=== PATIENT | female | born 1955 | race Caucasian/White ===

== ENCOUNTER 2018-01-03 17:57 | Emergency (ER) | payer BC, OTHER ==
[2018-01-03] MEDS: HYDROCODONE/APAP (10/325) TAB PO (19:15)
[2018-01-03] MEDS: KETOROLAC 60 MG INJ IM (19:15)
== END 2018-01-03 21:20 | disposition home or self-care (01) ==
LOC: FTE 17:57
DX: M79.605 Pain in left leg (principal); I10 Essential (primary) hypertension; E11.9 Type 2 diabetes mellitus without complications; Z87.891 Personal history of nicotine dependence
CPT/HCPCS: 29515; 73510; 73562; 73610; 93971; 99284-25

== ENCOUNTER 2018-02-23 15:50 | Inpatient (IN) | payer BC ==
[2018-02-23] MEDS: HYDROCODONE/APAP (10/325) TAB PO (16:10)
[2018-02-23] MEDS: ONDANSETRON (ODT) 4 MG TAB ODT (16:10)
[2018-02-23] MEDS: morphine 2 MG INJ IM (17:41)
[2018-02-23 18:57] LABS: ADD MAN DIFF? NO
[2018-02-23 19:00] LABS: BASOPHILS % 0.4 % (0.0-2.0); EOSINOPHILS # 0.3 10^3/ul (0.0-0.5); EOSINOPHILS % 3.4 % (0.0-7.0); HEMATOCRIT 42.3 % (37.0-47.0); HEMOGLOBIN 13.3 g/dl (12.0-16.0); LYMPHOCYTES % 12.1 % (15.0-51.0); MEAN CORPUSCULAR HGB CONC 31.4 g/dl (32.0-37.0); MEAN CORPUSCULAR VOLUME 89.1 fl (82.0-101.0); MEAN PLATELET VOLUME 10.3 fl (7.4-10.4); MONOCYTE # 0.6 10^3/ul (0.3-0.9); MONOCYTES % 7.4 % (0.0-11.0); NEUTROPHIL # 6.3 10^3/ul (1.6-7.5); NEUTROPHILS % 75.9 % (39.0-77.0); PLATELET COUNT 254 10^3/UL (140-415); RED BLOOD COUNT 4.75 10^6/ul (4.20-5.40); RED CELL DISTRIBUTION WIDTH 14.5 % (11.5-14.5)
[2018-02-23 19:00] LABS: WHITE BLOOD COUNT 8.3 10^3/ul (4.8-10.8)
[2018-02-23] MEDS: HYDROmorphONE 1 MG/ML SYG IV (19:05)
[2018-02-23] MEDS: ONDANSETRON 4 MG INJ IV (19:05)
[2018-02-23 19:17] LABS: ANION GAP 5 (5-13); BLOOD UREA NITROGEN 22 mg/dl (7-20); CALCIUM 9.3 mg/dl (8.4-10.2); CARBON DIOXIDE 27 mmol/L (21-31); CHLORIDE 108 mmol/L (97-110); CREATININE 0.97 mg/dl (0.44-1.00); GLUCOSE 116 mg/dl (70-220); SODIUM 140 mmol/L (135-144)
[2018-02-23] MEDS ORDERED: ONDANSETRON 4 MG INJ IV (19:30)
[2018-02-23] MEDS ORDERED: ACETAMINOPHEN 325 MG TAB PO ×2 (19:30→21:00)
[2018-02-23] MEDS ORDERED: BISACODYL (EC) 5 MG TAB PO (21:00)
[2018-02-23] MEDS: INSULIN ASPART [NOVOLOG] 3 ML PEN SC (21:00)
[2018-02-23] MEDS ORDERED: NACL 0.9% 3 ML SYG IV (21:00)
[2018-02-23] MEDS ORDERED: GLUCAGON 1 MG INJ IM (21:30)
[2018-02-23] MEDS ORDERED: GLUCOSE GEL 15 GRAM TUBE BUCCAL (21:30)
[2018-02-23] MEDS ORDERED: GLUCOSE GEL 15 GRAM TUBE PO ×2 (21:30)
[2018-02-23] MEDS ORDERED: DEXTROSE 50% 50 ML SYRINGE IV ×2 (21:30)
[2018-02-23] MEDS: HYDROCODONE/APAP (5/325) TAB PO (21:34)
[2018-02-23] MEDS: ENOXAPARIN 40 MG/0.4 ML SYG SC (22:13)
[2018-02-23] MEDS: GABAPENTIN 300 MG CAP PO (23:53)
[2018-02-23] MEDS: traMADol 50 MG TAB PO (23:54)
[2018-02-24] MEDS: ACCU-CHEK XX (01:30)
[2018-02-24] MEDS ORDERED: PENDING SANTYL ORDER FOR WOUND CARE XX (03:00)
[2018-02-24] MEDS: PANTOPRAZOLE SODIUM 20 MG TABEC PO (05:38)
[2018-02-24] MEDS: CYCLOBENZAPRINE 10 MG TAB PO (05:38)
[2018-02-24] MEDS: HYDROCODONE/APAP (5/325) TAB PO ×2 (05:40→11:46)
[2018-02-24] MEDS: LEVOTHYROXINE 100 MCG TAB PO (06:09)
[2018-02-24 06:45] LABS: ADD MAN DIFF? NO
[2018-02-24 06:54] LABS: BASOPHILS % 0.6 % (0.0-2.0); EOSINOPHILS # 0.3 10^3/ul (0.0-0.5); EOSINOPHILS % 4.3 % (0.0-7.0); HEMATOCRIT 39.8 % (37.0-47.0); HEMOGLOBIN 12.6 g/dl (12.0-16.0); LYMPHOCYTES # 1.1 10^3/ul (0.8-2.9); LYMPHOCYTES % 15.9 % (15.0-51.0); MEAN CORPUSCULAR HEMOGLOBIN 28.6 pg (29.0-33.0); MEAN CORPUSCULAR HGB CONC 31.7 g/dl (32.0-37.0); MEAN CORPUSCULAR VOLUME 90.2 fl (82.0-101.0); MEAN PLATELET VOLUME 10.8 fl (7.4-10.4); MONOCYTE # 0.6 10^3/ul (0.3-0.9); MONOCYTES % 8.5 % (0.0-11.0); NEUTROPHIL # 4.8 10^3/ul (1.6-7.5); NEUTROPHILS % 69.3 % (39.0-77.0); PLATELET COUNT 223 10^3/UL (140-415); RED BLOOD COUNT 4.41 10^6/ul (4.20-5.40); RED CELL DISTRIBUTION WIDTH 14.6 % (11.5-14.5)
[2018-02-24 07:07] LABS: HEMOGLOBIN A1C 5.9 % (0-5.9)
[2018-02-24 07:28] LABS: ALANINE AMINOTRANSFERASE 35 IU/L (13-69); ALBUMIN 2.9 g/dl (3.3-4.9); ALBUMIN/GLOBULIN RATIO 0.96; ALKALINE PHOSPHATASE 79 IU/L (42-121); ANION GAP 6 (5-13); ASPARTATE AMINO TRANSFERASE 28 IU/L (15-46); BILIRUBIN,INDIRECT 0.5 mg/dl (0-1.1); BILIRUBIN,TOTAL 0.5 mg/dl (0.2-1.3); BLOOD UREA NITROGEN 20 mg/dl (7-20); CALCIUM 9.2 mg/dl (8.4-10.2); CARBON DIOXIDE 27 mmol/L (21-31); CHLORIDE 107 mmol/L (97-110); CHOL/HDL RATIO 4.7 RATIO; CHOLESTEROL 161 mg/dl (100-200); CREATININE 1.05 mg/dl (0.44-1.00); GLUCOSE 109 mg/dl (70-220); HDL CHOLESTEROL 34 mg/dl (35-98); LDL CHOLESTEROL,CALCULATED 93 mg/dl; MAGNESIUM 1.8 mg/dl (1.7-2.5); POTASSIUM 4.5 mmol/L (3.5-5.1); SODIUM 140 mmol/L (135-144); TOTAL PROTEIN 5.9 g/dl (6.1-8.1); TRIGLYCERIDES 171 mg/dl (0-149)
[2018-02-24] MEDS: INSULIN ASPART [NOVOLOG] 3 ML PEN SC ×4 (07:52→20:39)
[2018-02-24] MEDS: INDOMETHACIN 50 MG PO ×3 (08:37→20:35)
[2018-02-24] MEDS: ATENOLOL 50 MG TAB PO (08:37)
[2018-02-24] MEDS: LOSARTAN 25 MG TAB PO (08:38)
[2018-02-24] MEDS: GABAPENTIN 300 MG CAP PO ×2 (08:40→20:35)
[2018-02-24] MEDS: traMADol 50 MG TAB PO ×2 (08:41→20:34)
[2018-02-24] MEDS: ENOXAPARIN 40 MG/0.4 ML SYG SC (08:42)
[2018-02-24] MEDS ORDERED: NAPROXEN SODIUM 500 MG XX (09:00)
[2018-02-24] MEDS: SOLIFENACIN 5 MG TAB PO (10:55)
[2018-02-24] MEDS: NAPROXEN 500 MG TAB PO ×2 (10:55→20:35)
[2018-02-25] MEDS: HYDROCODONE/APAP (5/325) TAB PO ×4 (00:07→21:41)
[2018-02-25] MEDS: ACCU-CHEK XX ×2 (02:00→23:53)
[2018-02-25 06:11] LABS: ADD MAN DIFF? NO
[2018-02-25 06:12] LABS: BASOPHILS % 0.3 % (0.0-2.0); EOSINOPHILS # 0.2 10^3/ul (0.0-0.5); EOSINOPHILS % 3.5 % (0.0-7.0); HEMATOCRIT 39.8 % (37.0-47.0); HEMOGLOBIN 12.4 g/dl (12.0-16.0); LYMPHOCYTES # 1.1 10^3/ul (0.8-2.9); LYMPHOCYTES % 16.8 % (15.0-51.0); MEAN CORPUSCULAR HEMOGLOBIN 28.2 pg (29.0-33.0); MEAN CORPUSCULAR HGB CONC 31.2 g/dl (32.0-37.0); MEAN CORPUSCULAR VOLUME 90.5 fl (82.0-101.0); MEAN PLATELET VOLUME 10.6 fl (7.4-10.4); MONOCYTE # 0.6 10^3/ul (0.3-0.9); MONOCYTES % 8.8 % (0.0-11.0); NEUTROPHIL # 4.6 10^3/ul (1.6-7.5); NEUTROPHILS % 69.2 % (39.0-77.0); PLATELET COUNT 216 10^3/UL (140-415); RED CELL DISTRIBUTION WIDTH 14.3 % (11.5-14.5)
[2018-02-25 06:12] LABS: WHITE BLOOD COUNT 6.6 10^3/ul (4.8-10.8)
[2018-02-25] MEDS: LEVOTHYROXINE 100 MCG TAB PO (06:21)
[2018-02-25] MEDS: PANTOPRAZOLE SODIUM 20 MG TABEC PO (06:22)
[2018-02-25 06:30] LABS: MAGNESIUM 1.7 mg/dl (1.7-2.5)
[2018-02-25 06:33] LABS: ANION GAP 6 (5-13); BLOOD UREA NITROGEN 24 mg/dl (7-20); CALCIUM 8.9 mg/dl (8.4-10.2); CARBON DIOXIDE 28 mmol/L (21-31); CHLORIDE 107 mmol/L (97-110); CREATININE 1.15 mg/dl (0.44-1.00); GLUCOSE 123 mg/dl (70-220); POTASSIUM 4.5 mmol/L (3.5-5.1); SODIUM 141 mmol/L (135-144)
[2018-02-25] MEDS: INSULIN ASPART [NOVOLOG] 3 ML PEN SC ×4 (08:00→21:00)
[2018-02-25] MEDS: NAPROXEN 500 MG TAB PO ×2 (08:54→21:41)
[2018-02-25] MEDS: GABAPENTIN 300 MG CAP PO ×2 (08:54→21:41)
[2018-02-25] MEDS: traMADol 50 MG TAB PO ×2 (08:54→23:08)
[2018-02-25] MEDS: LOSARTAN 25 MG TAB PO (08:54)
[2018-02-25] MEDS: INDOMETHACIN 50 MG PO ×3 (08:54→21:42)
[2018-02-25] MEDS: SOLIFENACIN 5 MG TAB PO (08:54)
[2018-02-25] MEDS: ATENOLOL 50 MG TAB PO (08:54)
[2018-02-25] MEDS: ENOXAPARIN 40 MG/0.4 ML SYG SC (08:56)
[2018-02-25] MEDS: CEPASTAT LOZENGE MT ×2 (12:14→21:43)
[2018-02-26] MEDS: PANTOPRAZOLE SODIUM 20 MG TABEC PO (05:18)
[2018-02-26] MEDS: HYDROCODONE/APAP (5/325) TAB PO ×3 (05:18→22:19)
[2018-02-26] MEDS: LEVOTHYROXINE 100 MCG TAB PO (06:29)
[2018-02-26] MEDS: INSULIN ASPART [NOVOLOG] 3 ML PEN SC ×4 (07:50→20:57)
[2018-02-26] MEDS: LOSARTAN 25 MG TAB PO (09:00)
[2018-02-26] MEDS: GABAPENTIN 300 MG CAP PO ×2 (09:01→20:53)
[2018-02-26] MEDS: SOLIFENACIN 5 MG TAB PO (09:01)
[2018-02-26] MEDS: NAPROXEN 500 MG TAB PO ×2 (09:01→20:53)
[2018-02-26] MEDS: INDOMETHACIN 50 MG PO ×3 (09:01→20:57)
[2018-02-26] MEDS: ATENOLOL 50 MG TAB PO (09:01)
[2018-02-26] MEDS: ENOXAPARIN 40 MG/0.4 ML SYG SC (09:05)
[2018-02-26] MEDS: traMADol 50 MG TAB PO ×2 (09:17→20:53)
[2018-02-26 11:09] LABS: FREE T4 (FREE THYROXINE) 1.57 ng/dl (0.78-2.44)
[2018-02-27] MEDS: ACCU-CHEK XX (02:00)
[2018-02-27] MEDS: HYDROCODONE/APAP (5/325) TAB PO ×3 (05:00→18:04)
[2018-02-27] MEDS: PANTOPRAZOLE SODIUM 20 MG TABEC PO (05:00)
[2018-02-27] MEDS: LEVOTHYROXINE 100 MCG TAB PO (05:52)
[2018-02-27] MEDS: INSULIN ASPART [NOVOLOG] 3 ML PEN SC ×4 (07:50→21:00)
[2018-02-27] MEDS: ENOXAPARIN 40 MG/0.4 ML SYG SC (08:38)
[2018-02-27] MEDS: NAPROXEN 500 MG TAB PO ×2 (08:38→22:17)
[2018-02-27] MEDS: INDOMETHACIN 50 MG PO ×3 (08:38→22:17)
[2018-02-27] MEDS: SOLIFENACIN 5 MG TAB PO (08:38)
[2018-02-27] MEDS: GABAPENTIN 300 MG CAP PO ×2 (08:38→22:17)
[2018-02-27] MEDS: traMADol 50 MG TAB PO ×2 (08:39→22:18)
[2018-02-27] MEDS: LOSARTAN 25 MG TAB PO (08:39)
[2018-02-27] MEDS: ATENOLOL 50 MG TAB PO (08:40)
[2018-02-27] MEDS: BETAMET NA PHOS/AC(6 MG/ML) 5ML INJ INJ ×2 (18:00)
[2018-02-27] MEDS: BUPIVACAINE 0.5%/EPI (SDV) 30 ML INJ INJ ×2 (18:00)
[2018-02-27] MEDS: SENNA/DOCUSATE NA (8.6MG/50MG) TAB PO (22:17)
[2018-02-28] MEDS: HYDROCODONE/APAP (5/325) TAB PO ×3 (01:21→16:58)
[2018-02-28] MEDS: ACCU-CHEK XX (02:00)
[2018-02-28 05:00] LABS: ADD MAN DIFF? NO
[2018-02-28 05:15] LABS: BASOPHILS % 0.3 % (0.0-2.0); EOSINOPHILS % 0.3 % (0.0-7.0); HEMATOCRIT 42.9 % (37.0-47.0); HEMOGLOBIN 13.5 g/dl (12.0-16.0); LYMPHOCYTES # 0.7 10^3/ul (0.8-2.9); LYMPHOCYTES % 7.4 % (15.0-51.0); MEAN CORPUSCULAR HEMOGLOBIN 27.7 pg (29.0-33.0); MEAN CORPUSCULAR HGB CONC 31.5 g/dl (32.0-37.0); MEAN CORPUSCULAR VOLUME 88.1 fl (82.0-101.0); MEAN PLATELET VOLUME 10.8 fl (7.4-10.4); MONOCYTE # 0.1 10^3/ul (0.3-0.9); MONOCYTES % 1.1 % (0.0-11.0); NEUTROPHIL # 7.8 10^3/ul (1.6-7.5); NEUTROPHILS % 89.4 % (39.0-77.0); PLATELET COUNT 265 10^3/UL (140-415); RED BLOOD COUNT 4.87 10^6/ul (4.20-5.40); RED CELL DISTRIBUTION WIDTH 13.9 % (11.5-14.5)
[2018-02-28 05:15] LABS: WHITE BLOOD COUNT 8.8 10^3/ul (4.8-10.8)
[2018-02-28 05:33] LABS: ANION GAP 9 (5-13); BLOOD UREA NITROGEN 31 mg/dl (7-20); CALCIUM 9.3 mg/dl (8.4-10.2); CARBON DIOXIDE 23 mmol/L (21-31); CHLORIDE 106 mmol/L (97-110); CREATININE 1.14 mg/dl (0.44-1.00); GLUCOSE 192 mg/dl (70-220); MAGNESIUM 1.9 mg/dl (1.7-2.5); PHOSPHORUS 3.3 mg/dl (2.5-4.9); SODIUM 138 mmol/L (135-144)
[2018-02-28 05:49] LABS: POTASSIUM 5.2 mmol/L (3.5-5.1)
[2018-02-28] MEDS: LEVOTHYROXINE 100 MCG TAB PO (06:30)
[2018-02-28] MEDS: NAPROXEN 500 MG TAB PO ×2 (08:31→21:15)
[2018-02-28] MEDS: ATENOLOL 50 MG TAB PO (08:32)
[2018-02-28] MEDS: GABAPENTIN 300 MG CAP PO ×2 (08:32→21:16)
[2018-02-28] MEDS: INDOMETHACIN 50 MG PO ×3 (08:32→21:15)
[2018-02-28] MEDS: SOLIFENACIN 5 MG TAB PO (08:32)
[2018-02-28] MEDS: LOSARTAN 25 MG TAB PO (08:32)
[2018-02-28] MEDS: INSULIN ASPART [NOVOLOG] 3 ML PEN SC ×4 (08:36→21:15)
[2018-02-28] MEDS: ENOXAPARIN 40 MG/0.4 ML SYG SC (08:36)
[2018-02-28] MEDS: traMADol 50 MG TAB PO ×2 (08:37→21:16)
[2018-02-28] MEDS: SENNA/DOCUSATE NA (8.6MG/50MG) TAB PO (21:16)
[2018-03-01] MEDS: HYDROCODONE/APAP (5/325) TAB PO ×2 (00:22→09:32)
[2018-03-01] MEDS: ACCU-CHEK XX ×2 (02:00→21:24)
[2018-03-01] MEDS: LEVOTHYROXINE 100 MCG TAB PO (06:47)
[2018-03-01] MEDS: NAPROXEN 500 MG TAB PO ×2 (08:21→21:21)
[2018-03-01] MEDS: INDOMETHACIN 50 MG PO ×3 (08:21→21:20)
[2018-03-01] MEDS: SOLIFENACIN 5 MG TAB PO (08:21)
[2018-03-01] MEDS: LOSARTAN 25 MG TAB PO (08:23)
[2018-03-01] MEDS: DOCUSATE SODIUM 100 MG CAP PO (08:23)
[2018-03-01] MEDS: GABAPENTIN 300 MG CAP PO ×2 (08:23→21:19)
[2018-03-01] MEDS: ATENOLOL 50 MG TAB PO (08:24)
[2018-03-01] MEDS: INSULIN ASPART [NOVOLOG] 3 ML PEN SC ×4 (08:28→21:00)
[2018-03-01] MEDS: ENOXAPARIN 40 MG/0.4 ML SYG SC (08:28)
[2018-03-01] MEDS: traMADol 50 MG TAB PO ×3 (08:35→21:20)
[2018-03-01] MEDS ORDERED: ENOXAPARIN 40 MG/0.4 ML SYG SC (09:00)
[2018-03-01] MEDS: MAGNESIUM HYDROXIDE 30ML CUP PO ×2 (14:00→21:00)
[2018-03-01] MEDS ORDERED: NA PHOSPHATE/BIPHOS 133 ML ENEMA PR (14:00)
[2018-03-01] MEDS: COLCHICINE 0.6 MG TAB PO ×2 (16:21→17:42)
[2018-03-01] MEDS: SENNA/DOCUSATE NA (8.6MG/50MG) TAB PO (21:00)
[2018-03-02] MEDS: HYDROCODONE/APAP (5/325) TAB PO ×2 (03:56→10:43)
[2018-03-02] MEDS: LEVOTHYROXINE 100 MCG TAB PO (07:16)
[2018-03-02] MEDS: INSULIN ASPART [NOVOLOG] 3 ML PEN SC ×4 (07:50→20:56)
[2018-03-02] MEDS: GABAPENTIN 300 MG CAP PO ×2 (08:48→20:38)
[2018-03-02] MEDS: INDOMETHACIN 50 MG PO ×3 (08:48→20:38)
[2018-03-02] MEDS: ATENOLOL 50 MG TAB PO (08:48)
[2018-03-02] MEDS: SOLIFENACIN 5 MG TAB PO (08:48)
[2018-03-02] MEDS: NAPROXEN 500 MG TAB PO ×2 (08:48→20:38)
[2018-03-02] MEDS: LOSARTAN 25 MG TAB PO (08:49)
[2018-03-02] MEDS: traMADol 50 MG TAB PO ×2 (08:50→20:47)
[2018-03-02] MEDS: ENOXAPARIN 40 MG/0.4 ML SYG SC (08:52)
[2018-03-02] MEDS: MAGNESIUM HYDROXIDE 30ML CUP PO ×2 (08:53→20:48)
[2018-03-02] MEDS: SENNA/DOCUSATE NA (8.6MG/50MG) TAB PO (20:48)
[2018-03-02] MEDS: ACCU-CHEK XX (20:56)
[2018-03-03] MEDS: LEVOTHYROXINE 100 MCG TAB PO (07:32)
[2018-03-03] MEDS: HYDROCODONE/APAP (5/325) TAB PO ×2 (07:32→13:28)
[2018-03-03] MEDS: INSULIN ASPART [NOVOLOG] 3 ML PEN SC ×4 (07:50→20:59)
[2018-03-03] MEDS: INDOMETHACIN 50 MG PO ×3 (08:45→20:59)
[2018-03-03] MEDS: SOLIFENACIN 5 MG TAB PO (08:45)
[2018-03-03] MEDS: GABAPENTIN 300 MG CAP PO ×2 (08:46→21:01)
[2018-03-03] MEDS: NAPROXEN 500 MG TAB PO ×2 (08:46→21:05)
[2018-03-03] MEDS: traMADol 50 MG TAB PO ×2 (08:47→21:00)
[2018-03-03] MEDS: ENOXAPARIN 40 MG/0.4 ML SYG SC (08:51)
[2018-03-03] MEDS: ATENOLOL 50 MG TAB PO (12:22)
[2018-03-03] MEDS: LOSARTAN 25 MG TAB PO (12:22)
[2018-03-03] MEDS ORDERED: NA PHOSPHATE/BIPHOS 133 ML ENEMA PR (15:00)
[2018-03-03] MEDS: SENNA/DOCUSATE NA (8.6MG/50MG) TAB PO (21:01)
[2018-03-04] MEDS: ACCU-CHEK XX (01:28)
[2018-03-04] MEDS: LEVOTHYROXINE 100 MCG TAB PO (06:09)
[2018-03-04] MEDS: INSULIN ASPART [NOVOLOG] 3 ML PEN SC ×4 (08:59→21:00)
[2018-03-04] MEDS: SOLIFENACIN 5 MG TAB PO (09:01)
[2018-03-04] MEDS: INDOMETHACIN 50 MG PO ×3 (09:01→23:21)
[2018-03-04] MEDS: COLCHICINE 0.6 MG TAB PO (09:01)
[2018-03-04] MEDS: NAPROXEN 500 MG TAB PO (09:01)
[2018-03-04] MEDS: GABAPENTIN 300 MG CAP PO ×2 (09:01→21:37)
[2018-03-04] MEDS: LOSARTAN 25 MG TAB PO (09:03)
[2018-03-04] MEDS: ATENOLOL 50 MG TAB PO (09:03)
[2018-03-04] MEDS: ENOXAPARIN 40 MG/0.4 ML SYG SC (09:12)
[2018-03-04] MEDS: traMADol 50 MG TAB PO ×2 (09:15→21:37)
[2018-03-04] MEDS ORDERED: GUAIFENESIN/DM 5ML CUP PO (20:00)
[2018-03-04] MEDS: SENNA/DOCUSATE NA (8.6MG/50MG) TAB PO (21:36)
[2018-03-05] MEDS: ACCU-CHEK XX ×2 (02:00→20:55)
[2018-03-05] MEDS: LEVOTHYROXINE 100 MCG TAB PO (05:59)
[2018-03-05] MEDS: INSULIN ASPART [NOVOLOG] 3 ML PEN SC ×4 (07:50→20:55)
[2018-03-05] MEDS: SOLIFENACIN 5 MG TAB PO (08:44)
[2018-03-05] MEDS: INDOMETHACIN 50 MG PO ×3 (08:44→20:51)
[2018-03-05] MEDS: GABAPENTIN 300 MG CAP PO ×2 (08:44→20:51)
[2018-03-05] MEDS: LOSARTAN 25 MG TAB PO (08:45)
[2018-03-05] MEDS: ATENOLOL 50 MG TAB PO (08:46)
[2018-03-05] MEDS: ENOXAPARIN 40 MG/0.4 ML SYG SC (08:51)
[2018-03-05] MEDS: traMADol 50 MG TAB PO ×2 (08:52→20:52)
[2018-03-05] MEDS: COLCHICINE 0.6 MG TAB PO (08:53)
[2018-03-05] MEDS: SENNA/DOCUSATE NA (8.6MG/50MG) TAB PO (20:51)
[2018-03-06] MEDS: HYDROCODONE/APAP (10/325) TAB PO ×2 (07:27→14:35)
[2018-03-06] MEDS: LEVOTHYROXINE 100 MCG TAB PO (07:27)
[2018-03-06] MEDS: INSULIN ASPART [NOVOLOG] 3 ML PEN SC ×4 (07:50→20:20)
[2018-03-06] MEDS: LOSARTAN 25 MG TAB PO (09:48)
[2018-03-06] MEDS: traMADol 50 MG TAB PO ×2 (09:48→21:00)
[2018-03-06] MEDS: GABAPENTIN 300 MG CAP PO ×2 (09:48→20:20)
[2018-03-06] MEDS: ATENOLOL 50 MG TAB PO (09:48)
[2018-03-06] MEDS: INDOMETHACIN 50 MG PO ×3 (09:49→20:20)
[2018-03-06] MEDS: SOLIFENACIN 5 MG TAB PO (09:49)
[2018-03-06] MEDS: COLCHICINE 0.6 MG TAB PO (09:49)
[2018-03-06] MEDS: ENOXAPARIN 40 MG/0.4 ML SYG SC (09:50)
[2018-03-06] MEDS: SENNA/DOCUSATE NA (8.6MG/50MG) TAB PO (20:20)
[2018-03-07] MEDS: ACCU-CHEK XX (02:00)
[2018-03-07] MEDS: LEVOTHYROXINE 100 MCG TAB PO (06:23)
[2018-03-07] MEDS: INSULIN ASPART [NOVOLOG] 3 ML PEN SC ×4 (07:50→20:47)
[2018-03-07] MEDS: LOSARTAN 25 MG TAB PO (08:28)
[2018-03-07] MEDS: INDOMETHACIN 50 MG PO ×3 (08:28→20:46)
[2018-03-07] MEDS: GABAPENTIN 300 MG CAP PO ×2 (08:28→20:46)
[2018-03-07] MEDS: ATENOLOL 50 MG TAB PO (08:29)
[2018-03-07] MEDS: SOLIFENACIN 5 MG TAB PO (08:30)
[2018-03-07] MEDS: traMADol 50 MG TAB PO ×2 (08:30→20:46)
[2018-03-07] MEDS: ENOXAPARIN 40 MG/0.4 ML SYG SC (08:36)
[2018-03-07] MEDS: COLCHICINE 0.6 MG TAB PO (10:30)
[2018-03-07] MEDS: HYDROCODONE/APAP (10/325) TAB PO (10:31)
[2018-03-07] MEDS: SENNA/DOCUSATE NA (8.6MG/50MG) TAB PO (20:46)
[2018-03-08] MEDS: ACCU-CHEK XX (02:00)
[2018-03-08] MEDS: LEVOTHYROXINE 100 MCG TAB PO (06:27)
[2018-03-08] MEDS: INSULIN ASPART [NOVOLOG] 3 ML PEN SC ×4 (07:50→20:34)
[2018-03-08] MEDS: GABAPENTIN 300 MG CAP PO ×2 (08:53→20:35)
[2018-03-08] MEDS: LOSARTAN 25 MG TAB PO (08:53)
[2018-03-08] MEDS: ATENOLOL 50 MG TAB PO (08:53)
[2018-03-08] MEDS: SOLIFENACIN 5 MG TAB PO (08:54)
[2018-03-08] MEDS: traMADol 50 MG TAB PO ×2 (08:54→20:35)
[2018-03-08] MEDS: INDOMETHACIN 50 MG PO ×3 (08:54→20:35)
[2018-03-08] MEDS: ENOXAPARIN 40 MG/0.4 ML SYG SC (10:04)
[2018-03-08] MEDS: COLCHICINE 0.6 MG TAB PO (10:04)
[2018-03-08] MEDS: SENNA/DOCUSATE NA (8.6MG/50MG) TAB PO (20:35)
[2018-03-09] MEDS: ACCU-CHEK XX (02:00)
[2018-03-09] MEDS: LEVOTHYROXINE 100 MCG TAB PO (06:39)
[2018-03-09] MEDS: INSULIN ASPART [NOVOLOG] 3 ML PEN SC ×2 (07:50→11:40)
[2018-03-09] MEDS: ATENOLOL 50 MG TAB PO (09:30)
[2018-03-09] MEDS: INDOMETHACIN 50 MG PO ×2 (09:30→13:00)
[2018-03-09] MEDS: traMADol 50 MG TAB PO ×3 (09:31→10:16)
[2018-03-09] MEDS: LOSARTAN 25 MG TAB PO (09:31)
[2018-03-09] MEDS: SOLIFENACIN 5 MG TAB PO (09:31)
[2018-03-09] MEDS: GABAPENTIN 300 MG CAP PO (09:31)
[2018-03-09] MEDS: ENOXAPARIN 40 MG/0.4 ML SYG SC (09:40)
[2018-03-09] MEDS: COLCHICINE 0.6 MG TAB PO (11:30)
== END 2018-03-09 16:40 | disposition home health service (06) | DRG 554 ==
LOC: MS1 02-26 05:58 → E/R 15:50 → PP2 20:04
PROC: 3E0U33Z Introduction of Anti-inflammatory into Joints, Percutaneous Approach (ICD-10-PCS; principal; 2018-02-27)
DX: M17.12 Unilateral primary osteoarthritis, left knee (principal); Z68.44 Body mass index [BMI] 60.0-69.9, adult; S80.02XA Contusion of left knee, initial encounter; S70.02XA Contusion of left hip, initial encounter; S13.9XXA Sprain of joints and ligaments of unspecified parts of neck, initial encounter; E66.01 Morbid (severe) obesity due to excess calories; Z71.3 Dietary counseling and surveillance; J45.909 Unspecified asthma, uncomplicated; I10 Essential (primary) hypertension; E03.9 Hypothyroidism, unspecified; S90.31XA Contusion of right foot, initial encounter; F17.200 Nicotine dependence, unspecified, uncomplicated; N31.2 Flaccid neuropathic bladder, not elsewhere classified; E11.51 Type 2 diabetes mellitus with diabetic peripheral angiopathy without gangrene; G89.29 Other chronic pain; M10.9 Gout, unspecified; K59.00 Constipation, unspecified; S92.511A Displaced fracture of proximal phalanx of right lesser toe(s), initial encounter for closed fracture; Z88.0 Allergy status to penicillin; W01.0XXA Fall on same level from slipping, tripping and stumbling without subsequent striking against object, initial encounter
CPT/HCPCS: 36415; 72050; 72072; 72100; 72170; 73510; 73562; 73620; 80048; 80053; 80061; 82962; 83036; 83735; 84100; 84439; 84443; 84560; 85025; 93923; 96372; 96374; 96375; 97110; 97116; 97163; 97530; 99285-25

== ENCOUNTER 2018-08-06 15:04 | Inpatient (IN) | payer BC ==
[2018-08-06] MEDS: ONDANSETRON (ODT) 4 MG TAB ODT (15:50)
[2018-08-06] MEDS: HYDROmorphONE 1 MG/ML SYG IM (15:51)
[2018-08-06 17:11] LABS: ADD MAN DIFF? NO
[2018-08-06 17:15] LABS: BASOPHIL # 0.1 10^3/ul (0.0-0.1); BASOPHILS % 0.5 % (0.0-2.0); EOSINOPHILS # 0.4 10^3/ul (0.0-0.5); EOSINOPHILS % 3.9 % (0.0-7.0); HEMATOCRIT 40.2 % (37.0-47.0); HEMOGLOBIN 12.9 g/dl (12.0-16.0); LYMPHOCYTES # 1.1 10^3/ul (0.8-2.9); LYMPHOCYTES % 11.9 % (15.0-51.0); MEAN CORPUSCULAR HEMOGLOBIN 28.5 pg (29.0-33.0); MEAN CORPUSCULAR HGB CONC 32.1 g/dl (32.0-37.0); MEAN CORPUSCULAR VOLUME 88.7 fl (82.0-101.0); MEAN PLATELET VOLUME 10.6 fl (7.4-10.4); MONOCYTE # 0.6 10^3/ul (0.3-0.9); MONOCYTES % 6.7 % (0.0-11.0); NEUTROPHIL # 7.3 10^3/ul (1.6-7.5); NEUTROPHILS % 76.4 % (39.0-77.0); PLATELET COUNT 254 10^3/UL (140-415); RED BLOOD COUNT 4.53 10^6/ul (4.20-5.40); RED CELL DISTRIBUTION WIDTH 13.8 % (11.5-14.5)
[2018-08-06 17:15] LABS: WHITE BLOOD COUNT 9.5 10^3/ul (4.8-10.8)
[2018-08-06 17:29] LABS: INR 0.93; PROTIME 12.6 Sec (11.9-14.9)
[2018-08-06 17:37] LABS: ALANINE AMINOTRANSFERASE 26 IU/L (13-69); ALBUMIN 3.5 g/dl (3.3-4.9); ALKALINE PHOSPHATASE 78 IU/L (42-121); ANION GAP 9 (5-13); ASPARTATE AMINO TRANSFERASE 26 IU/L (15-46); BILIRUBIN,INDIRECT 0.3 mg/dl (0-1.1); BILIRUBIN,TOTAL 0.3 mg/dl (0.2-1.3); BLOOD UREA NITROGEN 19 mg/dl (7-20); CALCIUM 8.9 mg/dl (8.4-10.2); CARBON DIOXIDE 23 mmol/L (21-31); CHLORIDE 108 mmol/L (97-110); CREATININE 1.04 mg/dl (0.44-1.00); Estimated GFR 54 mL/min (>60); GLUCOSE 108 mg/dl (70-220); POTASSIUM 3.8 mmol/L (3.5-5.1); SODIUM 140 mmol/L (135-144); TOTAL PROTEIN 6.4 g/dl (6.1-8.1)
[2018-08-06 17:40] LABS: ADD UMIC YES; UR ASCORBIC ACID NEGATIVE (NEGATIVE); UR BILIRUBIN (Dip) NEGATIVE (NEGATIVE); UR BLOOD (Dip) NEGATIVE (NEGATIVE); UR CLARITY CLEAR (CLEAR); UR COLOR YELLOW (YELLOW); UR GLUCOSE (Dip) NEGATIVE (NEGATIVE); UR KETONES (Dip) NEGATIVE (NEGATIVE); UR LEUKOCYTE ESTERASE (Dip) TRACE Leu/ul (NEGATIVE); UR NITRITE (Dip) NEGATIVE (NEGATIVE); UR RBC 1 /HPF (0-5); UR SPECIFIC GRAVITY (Dip) 1.015 (1.003-1.030); UR SQUAMOUS EPITHELIAL CELL FEW /HPF (FEW); UR TOTAL PROTEIN (Dip) NEGATIVE (NEGATIVE); UR UROBILINOGEN (Dip) NEGATIVE (NEGATIVE); UR WBC 3 /HPF (0-5)
[2018-08-06 17:46] LABS: TROPONIN-I < 0.012 ng/ml (0.000-0.120)
[2018-08-06] MEDS: ONDANSETRON 4 MG INJ IV ×2 (18:32→22:37)
[2018-08-06] MEDS: HYDROmorphONE 1 MG/ML SYG IV ×2 (18:32→21:20)
[2018-08-06] MEDS ORDERED: ACETAMINOPHEN 325 MG TAB PO (19:30)
[2018-08-06] MEDS ORDERED: GLUCAGON 1 MG INJ IM (23:00)
[2018-08-06] MEDS ORDERED: GLUCOSE GEL 15 GRAM TUBE PO ×2 (23:00)
[2018-08-06] MEDS ORDERED: NACL 0.9% 3 ML SYG IV (23:00)
[2018-08-06] MEDS ORDERED: HYDROCODONE/APAP (5/325) TAB PO (23:00)
[2018-08-06] MEDS ORDERED: GLUCOSE GEL 15 GRAM TUBE BUCCAL (23:00)
[2018-08-06] MEDS ORDERED: ONDANSETRON 4 MG INJ IV (23:00)
[2018-08-06] MEDS ORDERED: DEXTROSE 50% 50 ML SYRINGE IV ×2 (23:00)
[2018-08-06] MEDS: GABAPENTIN 300 MG CAP PO (23:48)
[2018-08-06] MEDS: NAPROXEN 500 MG TAB PO (23:48)
[2018-08-06] MEDS: DEXAMETHASONE 4 MG/ML 1 ML INJ IV (23:49)
[2018-08-07] MEDS: HYDROCODONE/APAP (5/325) TAB PO ×2 (02:37→08:40)
[2018-08-07] MEDS: ACCU-CHEK XX (02:43)
[2018-08-07] MEDS: NYSTATIN 30 GM POWDER BTL TOP ×3 (02:43→12:24)
[2018-08-07 05:15] LABS: ADD MAN DIFF? NO
[2018-08-07 05:26] LABS: ABNORMAL IP MESSAGE 1; BASOPHILS % 0.5 % (0.0-2.0); EOSINOPHILS # 0.1 10^3/ul (0.0-0.5); EOSINOPHILS % 0.6 % (0.0-7.0); HEMATOCRIT 41.4 % (37.0-47.0); HEMOGLOBIN 12.9 g/dl (12.0-16.0); LYMPHOCYTES # 0.5 10^3/ul (0.8-2.9); LYMPHOCYTES % 5.1 % (15.0-51.0); MEAN CORPUSCULAR HGB CONC 31.2 g/dl (32.0-37.0); MEAN CORPUSCULAR VOLUME 89.8 fl (82.0-101.0); MEAN PLATELET VOLUME 10.8 fl (7.4-10.4); MONOCYTE # 0.2 10^3/ul (0.3-0.9); MONOCYTES % 1.8 % (0.0-11.0); NEUTROPHIL # 8.1 10^3/ul (1.6-7.5); NEUTROPHILS % 91.4 % (39.0-77.0); PLATELET COUNT 260 10^3/UL (140-415); RED BLOOD COUNT 4.61 10^6/ul (4.20-5.40); RED CELL DISTRIBUTION WIDTH 13.7 % (11.5-14.5)
[2018-08-07 05:26] LABS: WHITE BLOOD COUNT 8.8 10^3/ul (4.8-10.8)
[2018-08-07] MEDS: PANTOPRAZOLE SODIUM 20 MG TABEC PO (05:33)
[2018-08-07 05:36] LABS: HEMOGLOBIN A1C 5.8 % (0-5.9)
[2018-08-07 05:58] LABS: POSITIVE DIFF @See below
[2018-08-07 06:02] LABS: ALANINE AMINOTRANSFERASE 20 IU/L (13-69); ALBUMIN 3.6 g/dl (3.3-4.9); ALKALINE PHOSPHATASE 88 IU/L (42-121); ANION GAP 10 (5-13); ASPARTATE AMINO TRANSFERASE 29 IU/L (15-46); BILIRUBIN,INDIRECT 0.3 mg/dl (0-1.1); BILIRUBIN,TOTAL 0.3 mg/dl (0.2-1.3); BLOOD UREA NITROGEN 19 mg/dl (7-20); CARBON DIOXIDE 23 mmol/L (21-31); CHLORIDE 106 mmol/L (97-110); CHOL/HDL RATIO 3.4 RATIO; CHOLESTEROL 164 mg/dl (100-200); CREATININE 0.96 mg/dl (0.44-1.00); Estimated GFR 59 mL/min (>60); GLUCOSE 154 mg/dl (70-220); HDL CHOLESTEROL 47 mg/dl (35-98); LDL CHOLESTEROL,CALCULATED 96 mg/dl; MAGNESIUM 1.8 mg/dl (1.7-2.5); PHOSPHORUS 3.7 mg/dl (2.5-4.9); POTASSIUM 4.2 mmol/L (3.5-5.1); SODIUM 139 mmol/L (135-144); TOTAL PROTEIN 6.6 g/dl (6.1-8.1); TRIGLYCERIDES 103 mg/dl (0-149)
[2018-08-07] MEDS: INSULIN ASPART [NOVOLOG] 3 ML PEN SC ×4 (07:50→21:00)
[2018-08-07] MEDS: SOLIFENACIN 5 MG TAB PO (08:41)
[2018-08-07] MEDS: GABAPENTIN 300 MG CAP PO ×2 (08:42→20:59)
[2018-08-07] MEDS: ALLOPURINOL 100 MG TAB PO (08:43)
[2018-08-07] MEDS: LOSARTAN 25 MG TAB PO (08:46)
[2018-08-07] MEDS: ATENOLOL 50 MG TAB PO (08:47)
[2018-08-07] MEDS: HEPARIN 5,000 UNIT/1 ML VIAL SC (08:57)
[2018-08-07] MEDS: NAPROXEN 500 MG TAB PO ×2 (09:00→20:58)
[2018-08-07] MEDS ORDERED: CITALOPRAM 20 MG TAB PO (09:00)
[2018-08-07] MEDS: BETAMET NA PHOS/AC(6 MG/ML) 5ML INJ INJ (14:00)
[2018-08-07] MEDS: BUPIVACAINE 0.5%/EPI (SDV) 30 ML INJ INJ (14:00)
[2018-08-07] MEDS: HYDROCODONE/APAP (10/325) TAB PO (20:58)
[2018-08-07] MEDS: CITALOPRAM 20 MG TAB PO (20:59)
[2018-08-08] MEDS: ACCU-CHEK XX (01:59)
[2018-08-08 05:24] LABS: WHITE BLOOD COUNT 9.4 10^3/ul (4.8-10.8)
[2018-08-08 05:24] LABS: ABNORMAL IP MESSAGE 1; ADD MAN DIFF? NO; BASOPHILS % 0.2 % (0.0-2.0); HEMATOCRIT 38.9 % (37.0-47.0); HEMOGLOBIN 12.3 g/dl (12.0-16.0); LYMPHOCYTES # 0.6 10^3/ul (0.8-2.9); MEAN CORPUSCULAR HEMOGLOBIN 28.5 pg (29.0-33.0); MEAN CORPUSCULAR HGB CONC 31.6 g/dl (32.0-37.0); MEAN PLATELET VOLUME 11.2 fl (7.4-10.4); MONOCYTE # 0.2 10^3/ul (0.3-0.9); MONOCYTES % 1.9 % (0.0-11.0); NEUTROPHIL # 8.5 10^3/ul (1.6-7.5); PLATELET COUNT 277 10^3/UL (140-415); RED BLOOD COUNT 4.32 10^6/ul (4.20-5.40); RED CELL DISTRIBUTION WIDTH 13.4 % (11.5-14.5)
[2018-08-08 05:52] LABS: POSITIVE DIFF @See below
[2018-08-08 06:18] LABS: ANION GAP 6 (5-13); BLOOD UREA NITROGEN 22 mg/dl (7-20); CALCIUM 8.9 mg/dl (8.4-10.2); CARBON DIOXIDE 25 mmol/L (21-31); CHLORIDE 108 mmol/L (97-110); CREATININE 1.12 mg/dl (0.44-1.00); Estimated GFR 49 mL/min (>60); GLUCOSE 185 mg/dl (70-220); POTASSIUM 4.3 mmol/L (3.5-5.1); SODIUM 139 mmol/L (135-144)
[2018-08-08] MEDS: LEVOTHYROXINE 100 MCG TAB PO (06:40)
[2018-08-08] MEDS: PANTOPRAZOLE SODIUM 20 MG TABEC PO (06:40)
[2018-08-08] MEDS: HYDROCODONE/APAP (10/325) TAB PO ×3 (06:53→23:32)
[2018-08-08] MEDS: INSULIN ASPART [NOVOLOG] 3 ML PEN SC ×4 (07:50→20:44)
[2018-08-08] MEDS: GABAPENTIN 300 MG CAP PO ×2 (08:44→20:40)
[2018-08-08] MEDS: SOLIFENACIN 5 MG TAB PO (08:44)
[2018-08-08] MEDS: ATENOLOL 50 MG TAB PO (08:44)
[2018-08-08] MEDS: ALLOPURINOL 100 MG TAB PO (08:45)
[2018-08-08] MEDS: LOSARTAN 25 MG TAB PO (08:46)
[2018-08-08] MEDS: ENOXAPARIN 40 MG/0.4 ML SYG SC (08:52)
[2018-08-08] MEDS: NAPROXEN 500 MG TAB PO ×2 (09:00→20:40)
[2018-08-08] MEDS: NYSTATIN 30 GM POWDER BTL TOP ×2 (16:15→21:00)
[2018-08-08] MEDS: CITALOPRAM 20 MG TAB PO (20:41)
[2018-08-09] MEDS: ACCU-CHEK XX (02:00)
[2018-08-09 04:59] LABS: ADD MAN DIFF? NO
[2018-08-09 05:00] LABS: WHITE BLOOD COUNT 9.9 10^3/ul (4.8-10.8)
[2018-08-09 05:00] LABS: BASOPHILS % 0.3 % (0.0-2.0); EOSINOPHILS # 0.1 10^3/ul (0.0-0.5); EOSINOPHILS % 0.5 % (0.0-7.0); HEMATOCRIT 37.9 % (37.0-47.0); LYMPHOCYTES # 1.2 10^3/ul (0.8-2.9); MEAN CORPUSCULAR HEMOGLOBIN 28.7 pg (29.0-33.0); MEAN CORPUSCULAR HGB CONC 31.7 g/dl (32.0-37.0); MEAN CORPUSCULAR VOLUME 90.7 fl (82.0-101.0); MEAN PLATELET VOLUME 11.1 fl (7.4-10.4); MONOCYTE # 0.6 10^3/ul (0.3-0.9); MONOCYTES % 5.9 % (0.0-11.0); NEUTROPHILS % 80.4 % (39.0-77.0); PLATELET COUNT 274 10^3/UL (140-415); RED BLOOD COUNT 4.18 10^6/ul (4.20-5.40); RED CELL DISTRIBUTION WIDTH 13.6 % (11.5-14.5)
[2018-08-09] MEDS: LEVOTHYROXINE 100 MCG TAB PO (05:09)
[2018-08-09] MEDS: PANTOPRAZOLE SODIUM 20 MG TABEC PO (05:10)
[2018-08-09 05:19] LABS: ANION GAP 8 (5-13); BLOOD UREA NITROGEN 31 mg/dl (7-20); CALCIUM 8.8 mg/dl (8.4-10.2); CARBON DIOXIDE 26 mmol/L (21-31); CHLORIDE 104 mmol/L (97-110); CREATININE 1.16 mg/dl (0.44-1.00); Estimated GFR 47 mL/min (>60); GLUCOSE 134 mg/dl (70-220); POTASSIUM 4.5 mmol/L (3.5-5.1); SODIUM 138 mmol/L (135-144)
[2018-08-09] MEDS: INSULIN ASPART [NOVOLOG] 3 ML PEN SC ×4 (07:50→21:00)
[2018-08-09] MEDS: ATENOLOL 50 MG TAB PO (09:09)
[2018-08-09] MEDS: SOLIFENACIN 5 MG TAB PO (09:10)
[2018-08-09] MEDS: ALLOPURINOL 100 MG TAB PO (09:10)
[2018-08-09] MEDS: NAPROXEN 500 MG TAB PO ×2 (09:11→21:04)
[2018-08-09] MEDS: HYDROCODONE/APAP (10/325) TAB PO ×2 (09:11→14:02)
[2018-08-09] MEDS: LOSARTAN 25 MG TAB PO (09:12)
[2018-08-09] MEDS: GABAPENTIN 300 MG CAP PO ×2 (09:13→21:04)
[2018-08-09] MEDS: ENOXAPARIN 40 MG/0.4 ML SYG SC (09:16)
[2018-08-09] MEDS: NYSTATIN 30 GM POWDER BTL TOP ×2 (09:17→21:05)
[2018-08-09] MEDS: ACETAMINOPHEN 325 MG TAB PO (17:30)
[2018-08-09] MEDS: CITALOPRAM 20 MG TAB PO (21:04)
[2018-08-09] MEDS: HYDROCODONE/APAP (7.5/325) TAB PO (21:04)
[2018-08-10] MEDS: ACCU-CHEK XX (02:00)
[2018-08-10 05:01] LABS: ADD MAN DIFF? NO
[2018-08-10 05:03] LABS: BASOPHIL # 0.1 10^3/ul (0.0-0.1); BASOPHILS % 0.5 % (0.0-2.0); EOSINOPHILS # 0.2 10^3/ul (0.0-0.5); EOSINOPHILS % 2.1 % (0.0-7.0); HEMOGLOBIN 12.3 g/dl (12.0-16.0); LYMPHOCYTES # 1.7 10^3/ul (0.8-2.9); MEAN CORPUSCULAR HEMOGLOBIN 28.5 pg (29.0-33.0); MEAN CORPUSCULAR HGB CONC 31.5 g/dl (32.0-37.0); MEAN CORPUSCULAR VOLUME 90.3 fl (82.0-101.0); MONOCYTE # 0.7 10^3/ul (0.3-0.9); MONOCYTES % 7.6 % (0.0-11.0); NEUTROPHIL # 6.4 10^3/ul (1.6-7.5); NEUTROPHILS % 69.7 % (39.0-77.0); PLATELET COUNT 255 10^3/UL (140-415); RED BLOOD COUNT 4.32 10^6/ul (4.20-5.40); RED CELL DISTRIBUTION WIDTH 13.7 % (11.5-14.5)
[2018-08-10 05:03] LABS: WHITE BLOOD COUNT 9.1 10^3/ul (4.8-10.8)
[2018-08-10 05:23] LABS: ANION GAP 5 (5-13); BLOOD UREA NITROGEN 34 mg/dl (7-20); CALCIUM 8.6 mg/dl (8.4-10.2); CARBON DIOXIDE 26 mmol/L (21-31); CHLORIDE 108 mmol/L (97-110); CREATININE 1.14 mg/dl (0.44-1.00); Estimated GFR 48 mL/min (>60); GLUCOSE 104 mg/dl (70-220); POTASSIUM 4.6 mmol/L (3.5-5.1); SODIUM 139 mmol/L (135-144)
[2018-08-10] MEDS: PANTOPRAZOLE SODIUM 20 MG TABEC PO (05:35)
[2018-08-10] MEDS: LEVOTHYROXINE 100 MCG TAB PO (05:38)
[2018-08-10] MEDS: INSULIN ASPART [NOVOLOG] 3 ML PEN SC ×4 (07:50→20:45)
[2018-08-10] MEDS: NAPROXEN 500 MG TAB PO ×2 (09:25→22:01)
[2018-08-10] MEDS: SOLIFENACIN 5 MG TAB PO (09:25)
[2018-08-10] MEDS: ALLOPURINOL 100 MG TAB PO (09:25)
[2018-08-10] MEDS: GABAPENTIN 300 MG CAP PO ×2 (09:25→20:44)
[2018-08-10] MEDS: ENOXAPARIN 40 MG/0.4 ML SYG SC (09:27)
[2018-08-10] MEDS: LOSARTAN 25 MG TAB PO (09:29)
[2018-08-10] MEDS: NYSTATIN 30 GM POWDER BTL TOP ×2 (10:31→22:01)
[2018-08-10] MEDS: HYDROCODONE/APAP (10/325) TAB PO ×2 (10:32→20:42)
[2018-08-10] MEDS: CITALOPRAM 20 MG TAB PO (20:42)
[2018-08-10] MEDS: MAGNESIUM CITRATE 300 ML BTL PO (22:02)
[2018-08-11] MEDS: ACCU-CHEK XX (01:19)
[2018-08-11] MEDS: LEVOTHYROXINE 100 MCG TAB PO (06:16)
[2018-08-11] MEDS: PANTOPRAZOLE SODIUM 20 MG TABEC PO (06:16)
[2018-08-11] MEDS: INSULIN ASPART [NOVOLOG] 3 ML PEN SC ×4 (07:50→21:00)
[2018-08-11] MEDS: HYDROCODONE/APAP (10/325) TAB PO ×3 (08:39→21:12)
[2018-08-11] MEDS: GABAPENTIN 300 MG CAP PO ×2 (08:54→21:05)
[2018-08-11] MEDS: LOSARTAN 25 MG TAB PO (08:54)
[2018-08-11] MEDS: NAPROXEN 500 MG TAB PO ×2 (08:54→21:04)
[2018-08-11] MEDS: SOLIFENACIN 5 MG TAB PO (08:54)
[2018-08-11] MEDS: ALLOPURINOL 100 MG TAB PO (08:55)
[2018-08-11] MEDS: POLYETHYLENE GLYCOL 17 GM PACKET PO (08:55)
[2018-08-11] MEDS: ENOXAPARIN 40 MG/0.4 ML SYG SC (08:57)
[2018-08-11] MEDS: NYSTATIN 30 GM POWDER BTL TOP ×2 (08:59→21:05)
[2018-08-11] MEDS: CITALOPRAM 20 MG TAB PO (21:05)
[2018-08-12] MEDS: ACCU-CHEK XX (02:00)
[2018-08-12 04:57] LABS: ADD MAN DIFF? NO
[2018-08-12 04:59] LABS: WHITE BLOOD COUNT 8.5 10^3/ul (4.8-10.8)
[2018-08-12 04:59] LABS: BASOPHILS % 0.5 % (0.0-2.0); EOSINOPHILS # 0.4 10^3/ul (0.0-0.5); EOSINOPHILS % 4.1 % (0.0-7.0); HEMATOCRIT 41.4 % (37.0-47.0); HEMOGLOBIN 12.8 g/dl (12.0-16.0); LYMPHOCYTES # 1.4 10^3/ul (0.8-2.9); LYMPHOCYTES % 16.3 % (15.0-51.0); MEAN CORPUSCULAR HEMOGLOBIN 28.3 pg (29.0-33.0); MEAN CORPUSCULAR HGB CONC 30.9 g/dl (32.0-37.0); MEAN CORPUSCULAR VOLUME 91.4 fl (82.0-101.0); MEAN PLATELET VOLUME 10.8 fl (7.4-10.4); MONOCYTE # 0.6 10^3/ul (0.3-0.9); MONOCYTES % 6.6 % (0.0-11.0); NEUTROPHIL # 6.1 10^3/ul (1.6-7.5); NEUTROPHILS % 71.1 % (39.0-77.0); PLATELET COUNT 242 10^3/UL (140-415); RED BLOOD COUNT 4.53 10^6/ul (4.20-5.40); RED CELL DISTRIBUTION WIDTH 13.4 % (11.5-14.5)
[2018-08-12 05:25] LABS: ANION GAP 8 (5-13); BLOOD UREA NITROGEN 37 mg/dl (7-20); CALCIUM 8.6 mg/dl (8.4-10.2); CARBON DIOXIDE 29 mmol/L (21-31); CHLORIDE 102 mmol/L (97-110); Estimated GFR 46 mL/min (>60); GLUCOSE 109 mg/dl (70-220); MAGNESIUM 2.1 mg/dl (1.7-2.5); PHOSPHORUS 5.1 mg/dl (2.5-4.9); POTASSIUM 4.8 mmol/L (3.5-5.1); SODIUM 139 mmol/L (135-144)
[2018-08-12] MEDS: PANTOPRAZOLE SODIUM 20 MG TABEC PO (06:30)
[2018-08-12] MEDS: LEVOTHYROXINE 100 MCG TAB PO (06:30)
[2018-08-12] MEDS: INSULIN ASPART [NOVOLOG] 3 ML PEN SC ×4 (07:50→20:52)
[2018-08-12] MEDS: ALLOPURINOL 100 MG TAB PO (08:50)
[2018-08-12] MEDS: SOLIFENACIN 5 MG TAB PO (08:50)
[2018-08-12] MEDS: NAPROXEN 500 MG TAB PO ×2 (08:50→20:52)
[2018-08-12] MEDS: HYDROCODONE/APAP (10/325) TAB PO ×2 (08:51→18:16)
[2018-08-12] MEDS: POLYETHYLENE GLYCOL 17 GM PACKET PO (08:51)
[2018-08-12] MEDS: LOSARTAN 25 MG TAB PO (08:51)
[2018-08-12] MEDS: GABAPENTIN 300 MG CAP PO ×2 (08:51→20:52)
[2018-08-12] MEDS: ENOXAPARIN 40 MG/0.4 ML SYG SC (08:53)
[2018-08-12] MEDS: NYSTATIN 30 GM POWDER BTL TOP ×2 (08:54→20:57)
[2018-08-12] MEDS: ALLOPURINOL 300 MG TAB PO (13:57)
[2018-08-12] MEDS: CITALOPRAM 20 MG TAB PO (20:52)
[2018-08-13] MEDS: ACCU-CHEK XX ×2 (02:00→23:20)
[2018-08-13] MEDS: HYDROCODONE/APAP (10/325) TAB PO ×2 (06:10→22:29)
[2018-08-13] MEDS: LEVOTHYROXINE 100 MCG TAB PO (06:10)
[2018-08-13] MEDS: PANTOPRAZOLE (EC) 40 MG TAB PO (06:11)
[2018-08-13] MEDS: SENNA TAB PO (06:11)
[2018-08-13] MEDS: METOCLOPRAMIDE 10 MG INJ IV (06:28)
[2018-08-13] MEDS: INSULIN ASPART [NOVOLOG] 3 ML PEN SC ×4 (07:50→20:39)
[2018-08-13] MEDS: SOLIFENACIN 5 MG TAB PO (08:33)
[2018-08-13] MEDS: DOCUSATE SODIUM 100 MG CAP PO ×2 (08:34→20:33)
[2018-08-13] MEDS: GABAPENTIN 300 MG CAP PO (08:34)
[2018-08-13] MEDS: ALLOPURINOL 300 MG TAB PO (08:35)
[2018-08-13] MEDS: LOSARTAN 25 MG TAB PO (08:36)
[2018-08-13] MEDS: POLYETHYLENE GLYCOL 17 GM PACKET PO (08:45)
[2018-08-13] MEDS: ENOXAPARIN 40 MG/0.4 ML SYG SC (08:47)
[2018-08-13] MEDS: NAPROXEN 500 MG TAB PO ×2 (09:00→20:33)
[2018-08-13] MEDS: NA PHOSPHATE/BIPHOS 133 ML ENEMA PR (09:30)
[2018-08-13] MEDS: NYSTATIN 30 GM POWDER BTL TOP ×2 (11:08→20:40)
[2018-08-13] MEDS: MAGNESIUM CITRATE 300 ML BTL PO (11:08)
[2018-08-13] MEDS: ACETAMINOPHEN 500 MG TAB PO ×2 (16:21→22:00)
[2018-08-13] MEDS: CITALOPRAM 20 MG TAB PO (20:33)
[2018-08-13] MEDS ORDERED: GABAPENTIN 300 MG CAP PO (21:00)
[2018-08-13] MEDS: GABAPENTIN 400 MG CAP PO (22:29)
[2018-08-14 05:30] LABS: ADD MAN DIFF? NO
[2018-08-14] MEDS: ACETAMINOPHEN 500 MG TAB PO ×3 (05:31→20:26)
[2018-08-14] MEDS: PANTOPRAZOLE (EC) 40 MG TAB PO (05:33)
[2018-08-14 05:46] LABS: WHITE BLOOD COUNT 8.2 10^3/ul (4.8-10.8)
[2018-08-14 05:46] LABS: BASOPHILS % 0.5 % (0.0-2.0); EOSINOPHILS # 0.5 10^3/ul (0.0-0.5); EOSINOPHILS % 5.7 % (0.0-7.0); HEMATOCRIT 42.2 % (37.0-47.0); HEMOGLOBIN 13.4 g/dl (12.0-16.0); LYMPHOCYTES # 1.4 10^3/ul (0.8-2.9); LYMPHOCYTES % 17.1 % (15.0-51.0); MEAN CORPUSCULAR HEMOGLOBIN 28.8 pg (29.0-33.0); MEAN CORPUSCULAR HGB CONC 31.8 g/dl (32.0-37.0); MEAN CORPUSCULAR VOLUME 90.8 fl (82.0-101.0); MEAN PLATELET VOLUME 11.4 fl (7.4-10.4); MONOCYTE # 0.5 10^3/ul (0.3-0.9); MONOCYTES % 6.3 % (0.0-11.0); NEUTROPHIL # 5.7 10^3/ul (1.6-7.5); NEUTROPHILS % 69.2 % (39.0-77.0); PLATELET COUNT 237 10^3/UL (140-415); RED BLOOD COUNT 4.65 10^6/ul (4.20-5.40); RED CELL DISTRIBUTION WIDTH 13.9 % (11.5-14.5)
[2018-08-14 06:05] LABS: ANION GAP 4 (5-13); BLOOD UREA NITROGEN 37 mg/dl (7-20); CALCIUM 9.2 mg/dl (8.4-10.2); CARBON DIOXIDE 31 mmol/L (21-31); CHLORIDE 104 mmol/L (97-110); CREATININE 1.06 mg/dl (0.44-1.00); Estimated GFR 53 mL/min (>60); GLUCOSE 115 mg/dl (70-220); SODIUM 139 mmol/L (135-144)
[2018-08-14] MEDS: LEVOTHYROXINE 100 MCG TAB PO (06:10)
[2018-08-14] MEDS: INSULIN ASPART [NOVOLOG] 3 ML PEN SC ×4 (07:50→20:32)
[2018-08-14] MEDS: NYSTATIN 30 GM POWDER BTL TOP ×2 (08:19→20:26)
[2018-08-14] MEDS: SOLIFENACIN 5 MG TAB PO (08:19)
[2018-08-14] MEDS: GABAPENTIN 400 MG CAP PO ×2 (08:20→20:25)
[2018-08-14] MEDS: DOCUSATE SODIUM 100 MG CAP PO ×2 (08:20→20:25)
[2018-08-14] MEDS: ALLOPURINOL 300 MG TAB PO (08:20)
[2018-08-14] MEDS: LOSARTAN 25 MG TAB PO (08:22)
[2018-08-14] MEDS: ENOXAPARIN 40 MG/0.4 ML SYG SC (08:27)
[2018-08-14] MEDS: POLYETHYLENE GLYCOL 17 GM PACKET PO (08:30)
[2018-08-14] MEDS: NAPROXEN 500 MG TAB PO ×2 (09:00→20:25)
[2018-08-14] MEDS: HYDROCODONE/APAP (10/325) TAB PO ×2 (10:39→20:24)
[2018-08-14] MEDS: CITALOPRAM 20 MG TAB PO (20:25)
[2018-08-15] MEDS: ACCU-CHEK XX (02:00)
[2018-08-15] MEDS: LEVOTHYROXINE 100 MCG TAB PO (06:34)
[2018-08-15] MEDS: PANTOPRAZOLE (EC) 40 MG TAB PO (06:34)
[2018-08-15] MEDS: ACETAMINOPHEN 500 MG TAB PO ×3 (06:34→20:35)
[2018-08-15] MEDS: INSULIN ASPART [NOVOLOG] 3 ML PEN SC ×4 (07:50→20:33)
[2018-08-15] MEDS: POLYETHYLENE GLYCOL 17 GM PACKET PO (09:00)
[2018-08-15] MEDS: LOSARTAN 25 MG TAB PO (09:00)
[2018-08-15] MEDS: SOLIFENACIN 5 MG TAB PO (09:57)
[2018-08-15] MEDS: NAPROXEN 500 MG TAB PO ×2 (09:57→20:33)
[2018-08-15] MEDS: ALLOPURINOL 300 MG TAB PO (09:58)
[2018-08-15] MEDS: HYDROCODONE/APAP (10/325) TAB PO ×2 (10:01→17:57)
[2018-08-15] MEDS: GABAPENTIN 400 MG CAP PO ×2 (10:02→20:33)
[2018-08-15] MEDS: DOCUSATE SODIUM 100 MG CAP PO ×2 (10:02→20:33)
[2018-08-15] MEDS: ENOXAPARIN 40 MG/0.4 ML SYG SC (10:06)
[2018-08-15] MEDS: NYSTATIN 30 GM POWDER BTL TOP ×2 (10:08→20:33)
[2018-08-15] MEDS: DICLOFENAC SODIUM 1% GEL 100 GM TUBE TP ×2 (19:18→21:00)
[2018-08-15] MEDS: CITALOPRAM 20 MG TAB PO (20:33)
[2018-08-16] MEDS: HYDROCODONE/APAP (10/325) TAB PO ×3 (00:47→18:14)
[2018-08-16] MEDS: DICLOFENAC SODIUM 1% GEL 100 GM TUBE TP ×4 (00:47→21:50)
[2018-08-16] MEDS: ACCU-CHEK XX (02:00)
[2018-08-16] MEDS: ACETAMINOPHEN 500 MG TAB PO ×3 (06:15→21:49)
[2018-08-16] MEDS: PANTOPRAZOLE (EC) 40 MG TAB PO (06:15)
[2018-08-16] MEDS: LEVOTHYROXINE 100 MCG TAB PO (06:15)
[2018-08-16] MEDS: INSULIN ASPART [NOVOLOG] 3 ML PEN SC ×4 (07:50→21:00)
[2018-08-16] MEDS: GABAPENTIN 400 MG CAP PO ×2 (08:45→21:49)
[2018-08-16] MEDS: POLYETHYLENE GLYCOL 17 GM PACKET PO (08:46)
[2018-08-16] MEDS: LOSARTAN 25 MG TAB PO (08:46)
[2018-08-16] MEDS: SOLIFENACIN 5 MG TAB PO (08:46)
[2018-08-16] MEDS: DOCUSATE SODIUM 100 MG CAP PO ×2 (08:46→21:49)
[2018-08-16] MEDS: NAPROXEN 500 MG TAB PO ×2 (08:46→21:50)
[2018-08-16] MEDS: ALLOPURINOL 300 MG TAB PO (08:46)
[2018-08-16] MEDS: NYSTATIN 30 GM POWDER BTL TOP ×2 (08:47→21:51)
[2018-08-16] MEDS: ENOXAPARIN 40 MG/0.4 ML SYG SC (08:55)
[2018-08-16] MEDS: CITALOPRAM 20 MG TAB PO (21:49)
[2018-08-17] MEDS: HYDROCODONE/APAP (10/325) TAB PO ×2 (01:12→13:41)
[2018-08-17] MEDS: ACCU-CHEK XX (02:00)
[2018-08-17 05:34] LABS: ADD MAN DIFF? NO; BASOPHILS % 0.4 % (0.0-2.0); EOSINOPHILS # 0.4 10^3/ul (0.0-0.5); HEMATOCRIT 42.9 % (37.0-47.0); HEMOGLOBIN 13.5 g/dl (12.0-16.0); LYMPHOCYTES # 1.3 10^3/ul (0.8-2.9); LYMPHOCYTES % 17.1 % (15.0-51.0); MEAN CORPUSCULAR HEMOGLOBIN 28.8 pg (29.0-33.0); MEAN CORPUSCULAR HGB CONC 31.5 g/dl (32.0-37.0); MEAN CORPUSCULAR VOLUME 91.7 fl (82.0-101.0); MEAN PLATELET VOLUME 11.3 fl (7.4-10.4); MONOCYTE # 0.6 10^3/ul (0.3-0.9); MONOCYTES % 7.5 % (0.0-11.0); NEUTROPHIL # 5.3 10^3/ul (1.6-7.5); PLATELET COUNT 244 10^3/UL (140-415); RED BLOOD COUNT 4.68 10^6/ul (4.20-5.40); RED CELL DISTRIBUTION WIDTH 13.8 % (11.5-14.5)
[2018-08-17 05:34] LABS: WHITE BLOOD COUNT 7.7 10^3/ul (4.8-10.8)
[2018-08-17] MEDS: LEVOTHYROXINE 100 MCG TAB PO (06:01)
[2018-08-17] MEDS: PANTOPRAZOLE (EC) 40 MG TAB PO (06:01)
[2018-08-17] MEDS: ACETAMINOPHEN 500 MG TAB PO ×3 (06:02→22:31)
[2018-08-17 06:11] LABS: ANION GAP 5 (5-13); BLOOD UREA NITROGEN 40 mg/dl (7-20); CALCIUM 9.5 mg/dl (8.4-10.2); CARBON DIOXIDE 31 mmol/L (21-31); CHLORIDE 103 mmol/L (97-110); CREATININE 1.32 mg/dl (0.44-1.00); Estimated GFR 41 mL/min (>60); GLUCOSE 101 mg/dl (70-220); MAGNESIUM 2.5 mg/dl (1.7-2.5); POTASSIUM 5.3 mmol/L (3.5-5.1); SODIUM 139 mmol/L (135-144)
[2018-08-17] MEDS: INSULIN ASPART [NOVOLOG] 3 ML PEN SC ×4 (07:50→20:34)
[2018-08-17] MEDS: GABAPENTIN 400 MG CAP PO ×2 (08:34→20:33)
[2018-08-17] MEDS: SOLIFENACIN 5 MG TAB PO (08:34)
[2018-08-17] MEDS: DOCUSATE SODIUM 100 MG CAP PO ×2 (08:34→20:33)
[2018-08-17] MEDS: ALLOPURINOL 300 MG TAB PO (08:34)
[2018-08-17] MEDS: LOSARTAN 25 MG TAB PO (08:34)
[2018-08-17] MEDS: DICLOFENAC SODIUM 1% GEL 100 GM TUBE TP ×4 (08:35→20:34)
[2018-08-17] MEDS: POLYETHYLENE GLYCOL 17 GM PACKET PO (08:35)
[2018-08-17] MEDS: NYSTATIN 30 GM POWDER BTL TOP ×2 (08:35→20:34)
[2018-08-17] MEDS: ENOXAPARIN 40 MG/0.4 ML SYG SC (08:35)
[2018-08-17] MEDS: NAPROXEN 500 MG TAB PO ×2 (08:39→20:33)
[2018-08-17] MEDS: SOD CHLORIDE 0.9% 1,000 ML IV ×2 (10:40→23:20)
[2018-08-17 13:31] LABS: ADD UMIC YES; UR ASCORBIC ACID NEGATIVE (NEGATIVE); UR BACTERIA FEW /HPF (NONE SEEN); UR BILIRUBIN (Dip) NEGATIVE (NEGATIVE); UR BLOOD (Dip) 1+ mg/dL (NEGATIVE); UR CLARITY SLIGHTLY CLOUDY (CLEAR); UR COLOR YELLOW (YELLOW); UR GLUCOSE (Dip) NEGATIVE (NEGATIVE); UR KETONES (Dip) NEGATIVE (NEGATIVE); UR LEUKOCYTE ESTERASE (Dip) NEGATIVE Leu/ul (NEGATIVE); UR NITRITE (Dip) NEGATIVE (NEGATIVE); UR RBC 0 /HPF (0-5); UR SPECIFIC GRAVITY (Dip) 1.016 (1.003-1.030); UR TOTAL PROTEIN (Dip) NEGATIVE (NEGATIVE); UR UROBILINOGEN (Dip) NEGATIVE (NEGATIVE); UR WBC 2 /HPF (0-5)
[2018-08-17] MEDS: NA POLYST SULFON 15 GM/60 ML BTL PO (15:53)
[2018-08-17] MEDS: CITALOPRAM 20 MG TAB PO (20:33)
[2018-08-17] MEDS: PERMETHRIN 5% 60 GM CR TOP (20:34)
[2018-08-18] MEDS: ACCU-CHEK XX (02:00)
[2018-08-18 05:30] LABS: ADD MAN DIFF? NO
[2018-08-18 05:44] LABS: BASOPHILS % 0.5 % (0.0-2.0); EOSINOPHILS # 0.4 10^3/ul (0.0-0.5); EOSINOPHILS % 4.8 % (0.0-7.0); HEMATOCRIT 40.9 % (37.0-47.0); HEMOGLOBIN 12.8 g/dl (12.0-16.0); LYMPHOCYTES # 1.3 10^3/ul (0.8-2.9); MEAN CORPUSCULAR HEMOGLOBIN 28.8 pg (29.0-33.0); MEAN CORPUSCULAR HGB CONC 31.3 g/dl (32.0-37.0); MEAN CORPUSCULAR VOLUME 92.1 fl (82.0-101.0); MEAN PLATELET VOLUME 11.3 fl (7.4-10.4); MONOCYTE # 0.6 10^3/ul (0.3-0.9); MONOCYTES % 8.3 % (0.0-11.0); NEUTROPHIL # 5.1 10^3/ul (1.6-7.5); NEUTROPHILS % 68.3 % (39.0-77.0); PLATELET COUNT 217 10^3/UL (140-415); RED BLOOD COUNT 4.44 10^6/ul (4.20-5.40); RED CELL DISTRIBUTION WIDTH 13.8 % (11.5-14.5)
[2018-08-18 05:44] LABS: WHITE BLOOD COUNT 7.5 10^3/ul (4.8-10.8)
[2018-08-18] MEDS: ACETAMINOPHEN 500 MG TAB PO ×3 (05:45→21:24)
[2018-08-18] MEDS: SOD CHLORIDE 0.9% 1,000 ML IV (05:45)
[2018-08-18] MEDS: PANTOPRAZOLE (EC) 40 MG TAB PO (05:45)
[2018-08-18] MEDS: LEVOTHYROXINE 100 MCG TAB PO (05:45)
[2018-08-18 05:52] LABS: ANION GAP 4 (5-13); BLOOD UREA NITROGEN 40 mg/dl (7-20); CALCIUM 9.2 mg/dl (8.4-10.2); CARBON DIOXIDE 30 mmol/L (21-31); CHLORIDE 105 mmol/L (97-110); CREATININE 1.28 mg/dl (0.44-1.00); Estimated GFR 42 mL/min (>60); GLUCOSE 109 mg/dl (70-220); MAGNESIUM 2.4 mg/dl (1.7-2.5); PHOSPHORUS 4.7 mg/dl (2.5-4.9); SODIUM 139 mmol/L (135-144)
[2018-08-18] MEDS: POLYETHYLENE GLYCOL 17 GM PACKET PO (09:00)
[2018-08-18] MEDS: GABAPENTIN 400 MG CAP PO ×2 (09:00→21:34)
[2018-08-18] MEDS: ENOXAPARIN 40 MG/0.4 ML SYG SC (09:00)
[2018-08-18] MEDS: NAPROXEN 500 MG TAB PO ×2 (09:00→21:24)
[2018-08-18] MEDS: DOCUSATE SODIUM 100 MG CAP PO ×2 (09:00→21:24)
[2018-08-18] MEDS: NYSTATIN 30 GM POWDER BTL TOP ×2 (09:01→21:24)
[2018-08-18] MEDS: SOLIFENACIN 5 MG TAB PO (09:01)
[2018-08-18] MEDS: ALLOPURINOL 300 MG TAB PO (09:01)
[2018-08-18] MEDS: DICLOFENAC SODIUM 1% GEL 100 GM TUBE TP ×4 (09:01→21:24)
[2018-08-18] MEDS: INSULIN ASPART [NOVOLOG] 3 ML PEN SC ×4 (09:04→21:00)
[2018-08-18 13:42] LABS: UR BACTERIA FEW /HPF (NONE SEEN); UR RBC 1 /HPF (0-5); UR WBC 4 /HPF (0-5)
[2018-08-18 13:48] LABS: ADD UMIC YES; UR ASCORBIC ACID NEGATIVE (NEGATIVE); UR BILIRUBIN (Dip) NEGATIVE (NEGATIVE); UR BLOOD (Dip) 2+ mg/dL (NEGATIVE); UR CLARITY CLEAR (CLEAR); UR COLOR YELLOW (YELLOW); UR GLUCOSE (Dip) NEGATIVE (NEGATIVE); UR KETONES (Dip) NEGATIVE (NEGATIVE); UR LEUKOCYTE ESTERASE (Dip) TRACE Leu/ul (NEGATIVE); UR NITRITE (Dip) NEGATIVE (NEGATIVE); UR SPECIFIC GRAVITY (Dip) 1.014 (1.003-1.030); UR TOTAL PROTEIN (Dip) NEGATIVE (NEGATIVE); UR UROBILINOGEN (Dip) 1+ mg/dL (NEGATIVE)
[2018-08-18 14:05] LABS: CREATININE,URINE RANDOM 64.55 mg/dl (20-320)
[2018-08-18 14:05] LABS: SODIUM,URINE RANDOM 106 mmol/L (30-90)
[2018-08-18] MEDS: HYDROCODONE/APAP (10/325) TAB PO ×2 (14:44→21:34)
[2018-08-18] MEDS: CITALOPRAM 20 MG TAB PO (21:24)
[2018-08-19] MEDS: ACCU-CHEK XX (02:00)
[2018-08-19 05:18] LABS: ADD MAN DIFF? NO
[2018-08-19 05:21] LABS: WHITE BLOOD COUNT 7.8 10^3/ul (4.8-10.8)
[2018-08-19 05:21] LABS: BASOPHILS % 0.4 % (0.0-2.0); EOSINOPHILS # 0.4 10^3/ul (0.0-0.5); EOSINOPHILS % 4.6 % (0.0-7.0); HEMATOCRIT 39.6 % (37.0-47.0); HEMOGLOBIN 12.5 g/dl (12.0-16.0); LYMPHOCYTES # 1.3 10^3/ul (0.8-2.9); MEAN CORPUSCULAR HEMOGLOBIN 28.6 pg (29.0-33.0); MEAN CORPUSCULAR HGB CONC 31.6 g/dl (32.0-37.0); MEAN CORPUSCULAR VOLUME 90.6 fl (82.0-101.0); MEAN PLATELET VOLUME 11.4 fl (7.4-10.4); MONOCYTE # 0.7 10^3/ul (0.3-0.9); MONOCYTES % 8.7 % (0.0-11.0); NEUTROPHIL # 5.4 10^3/ul (1.6-7.5); NEUTROPHILS % 68.9 % (39.0-77.0); PLATELET COUNT 209 10^3/UL (140-415); RED BLOOD COUNT 4.37 10^6/ul (4.20-5.40); RED CELL DISTRIBUTION WIDTH 13.8 % (11.5-14.5)
[2018-08-19 05:45] LABS: ANION GAP 5 (5-13); BLOOD UREA NITROGEN 42 mg/dl (7-20); CALCIUM 9.3 mg/dl (8.4-10.2); CARBON DIOXIDE 28 mmol/L (21-31); CHLORIDE 105 mmol/L (97-110); Estimated GFR 42 mL/min (>60); GLUCOSE 114 mg/dl (70-220); POTASSIUM 4.3 mmol/L (3.5-5.1); SODIUM 138 mmol/L (135-144)
[2018-08-19] MEDS: LEVOTHYROXINE 100 MCG TAB PO (06:52)
[2018-08-19] MEDS: ACETAMINOPHEN 500 MG TAB PO ×3 (06:52→21:59)
[2018-08-19] MEDS: PANTOPRAZOLE (EC) 40 MG TAB PO (06:53)
[2018-08-19] MEDS: INSULIN ASPART [NOVOLOG] 3 ML PEN SC ×4 (07:50→21:00)
[2018-08-19] MEDS: DOCUSATE SODIUM 100 MG CAP PO ×2 (08:34→21:00)
[2018-08-19] MEDS: NAPROXEN 500 MG TAB PO ×2 (08:34→20:59)
[2018-08-19] MEDS: ALLOPURINOL 300 MG TAB PO (08:34)
[2018-08-19] MEDS: SOLIFENACIN 5 MG TAB PO (08:34)
[2018-08-19] MEDS: GABAPENTIN 400 MG CAP PO ×2 (08:34→21:00)
[2018-08-19] MEDS: POLYETHYLENE GLYCOL 17 GM PACKET PO (08:35)
[2018-08-19] MEDS: NYSTATIN 30 GM POWDER BTL TOP ×2 (08:36→21:01)
[2018-08-19] MEDS: DICLOFENAC SODIUM 1% GEL 100 GM TUBE TP ×4 (08:36→21:00)
[2018-08-19] MEDS: ENOXAPARIN 40 MG/0.4 ML SYG SC (08:44)
[2018-08-19] MEDS: HYDROCODONE/APAP (10/325) TAB PO (16:27)
[2018-08-19] MEDS: CITALOPRAM 20 MG TAB PO (21:00)
[2018-08-20] MEDS: ACCU-CHEK XX (02:00)
[2018-08-20 05:13] LABS: ADD MAN DIFF? NO
[2018-08-20 05:22] LABS: WHITE BLOOD COUNT 8.2 10^3/ul (4.8-10.8)
[2018-08-20 05:22] LABS: BASOPHILS % 0.5 % (0.0-2.0); EOSINOPHILS # 0.3 10^3/ul (0.0-0.5); EOSINOPHILS % 4.2 % (0.0-7.0); HEMATOCRIT 38.8 % (37.0-47.0); HEMOGLOBIN 12.3 g/dl (12.0-16.0); LYMPHOCYTES # 1.3 10^3/ul (0.8-2.9); LYMPHOCYTES % 15.8 % (15.0-51.0); MEAN CORPUSCULAR HEMOGLOBIN 28.8 pg (29.0-33.0); MEAN CORPUSCULAR HGB CONC 31.7 g/dl (32.0-37.0); MEAN CORPUSCULAR VOLUME 90.9 fl (82.0-101.0); MEAN PLATELET VOLUME 11.3 fl (7.4-10.4); MONOCYTE # 0.7 10^3/ul (0.3-0.9); MONOCYTES % 7.9 % (0.0-11.0); NEUTROPHIL # 5.8 10^3/ul (1.6-7.5); NEUTROPHILS % 70.9 % (39.0-77.0); PLATELET COUNT 214 10^3/UL (140-415); RED BLOOD COUNT 4.27 10^6/ul (4.20-5.40); RED CELL DISTRIBUTION WIDTH 13.9 % (11.5-14.5)
[2018-08-20 06:06] LABS: ANION GAP 7 (5-13); BLOOD UREA NITROGEN 42 mg/dl (7-20); CALCIUM 9.1 mg/dl (8.4-10.2); CARBON DIOXIDE 26 mmol/L (21-31); CHLORIDE 106 mmol/L (97-110); CREATININE 1.25 mg/dl (0.44-1.00); Estimated GFR 44 mL/min (>60); GLUCOSE 105 mg/dl (70-220); POTASSIUM 4.4 mmol/L (3.5-5.1); SODIUM 139 mmol/L (135-144)
[2018-08-20 07:16] LABS: MAGNESIUM 2.2 mg/dl (1.7-2.5)
[2018-08-20 07:16] LABS: PHOSPHORUS 4.8 mg/dl (2.5-4.9)
[2018-08-20] MEDS: PANTOPRAZOLE (EC) 40 MG TAB PO (07:29)
[2018-08-20] MEDS: ACETAMINOPHEN 500 MG TAB PO ×3 (07:29→20:44)
[2018-08-20] MEDS: LEVOTHYROXINE 100 MCG TAB PO (07:30)
[2018-08-20] MEDS: INSULIN ASPART [NOVOLOG] 3 ML PEN SC ×4 (07:50→20:43)
[2018-08-20] MEDS: POLYETHYLENE GLYCOL 17 GM PACKET PO (09:00)
[2018-08-20] MEDS: DOCUSATE SODIUM 100 MG CAP PO ×2 (09:00→20:46)
[2018-08-20] MEDS: NAPROXEN 500 MG TAB PO ×2 (09:10→20:42)
[2018-08-20] MEDS: ALLOPURINOL 300 MG TAB PO (09:10)
[2018-08-20] MEDS: DICLOFENAC SODIUM 1% GEL 100 GM TUBE TP ×4 (09:11→20:44)
[2018-08-20] MEDS: GABAPENTIN 400 MG CAP PO ×2 (09:11→20:42)
[2018-08-20] MEDS: NYSTATIN 30 GM POWDER BTL TOP ×2 (09:11→20:44)
[2018-08-20] MEDS: ENOXAPARIN 40 MG/0.4 ML SYG SC (09:17)
[2018-08-20] MEDS: SOLIFENACIN 5 MG TAB PO (11:56)
[2018-08-20] MEDS: CITALOPRAM 20 MG TAB PO (20:42)
[2018-08-21] MEDS: ACCU-CHEK XX (02:00)
[2018-08-21 05:41] LABS: ANION GAP 9 (5-13); BLOOD UREA NITROGEN 39 mg/dl (7-20); CALCIUM 9.2 mg/dl (8.4-10.2); CARBON DIOXIDE 28 mmol/L (21-31); CHLORIDE 103 mmol/L (97-110); CREATININE 1.13 mg/dl (0.44-1.00); Estimated GFR 49 mL/min (>60); GLUCOSE 104 mg/dl (70-220); MAGNESIUM 2.2 mg/dl (1.7-2.5); PHOSPHORUS 4.3 mg/dl (2.5-4.9); POTASSIUM 4.4 mmol/L (3.5-5.1); SODIUM 140 mmol/L (135-144)
[2018-08-21] MEDS: PANTOPRAZOLE (EC) 40 MG TAB PO (06:21)
[2018-08-21] MEDS: ACETAMINOPHEN 500 MG TAB PO ×3 (06:21→21:26)
[2018-08-21] MEDS: LEVOTHYROXINE 100 MCG TAB PO (06:21)
[2018-08-21] MEDS: INSULIN ASPART [NOVOLOG] 3 ML PEN SC ×4 (07:50→21:00)
[2018-08-21] MEDS: ALLOPURINOL 300 MG TAB PO (08:39)
[2018-08-21] MEDS: GABAPENTIN 400 MG CAP PO ×2 (08:39→21:23)
[2018-08-21] MEDS: NAPROXEN 500 MG TAB PO ×2 (08:39→21:23)
[2018-08-21] MEDS: DOCUSATE SODIUM 100 MG CAP PO ×2 (08:39→21:00)
[2018-08-21] MEDS: POLYETHYLENE GLYCOL 17 GM PACKET PO (08:39)
[2018-08-21] MEDS: NYSTATIN 30 GM POWDER BTL TOP ×2 (08:40→21:24)
[2018-08-21] MEDS: DICLOFENAC SODIUM 1% GEL 100 GM TUBE TP ×4 (08:40→21:25)
[2018-08-21] MEDS: SOLIFENACIN 5 MG TAB PO (08:40)
[2018-08-21] MEDS: ENOXAPARIN 40 MG/0.4 ML SYG SC (08:50)
[2018-08-21] MEDS: HYDROCODONE/APAP (10/325) TAB PO (10:11)
[2018-08-21 14:52] LABS: CREATININE, RANDOM URINE 66 mg/dL (20-275); MICROALBUMIN 0.2 mg/dL; MICROALBUMIN/CREATININE RATIO 3 (<30)
[2018-08-21] MEDS: CITALOPRAM 20 MG TAB PO (21:23)
[2018-08-21] MEDS: PERMETHRIN 5% 60 GM CR TOP (21:26)
[2018-08-22] MEDS: HYDROCODONE/APAP (10/325) TAB PO ×2 (00:22→13:41)
[2018-08-22] MEDS: ACCU-CHEK XX (02:00)
[2018-08-22] MEDS: ACETAMINOPHEN 500 MG TAB PO ×3 (05:34→21:01)
[2018-08-22] MEDS: LEVOTHYROXINE 100 MCG TAB PO (05:34)
[2018-08-22] MEDS: PANTOPRAZOLE (EC) 40 MG TAB PO (05:34)
[2018-08-22] MEDS: INSULIN ASPART [NOVOLOG] 3 ML PEN SC ×4 (07:50→21:00)
[2018-08-22] MEDS: POLYETHYLENE GLYCOL 17 GM PACKET PO (09:00)
[2018-08-22] MEDS: DOCUSATE SODIUM 100 MG CAP PO ×2 (09:00→21:00)
[2018-08-22] MEDS: DICLOFENAC SODIUM 1% GEL 100 GM TUBE TP ×4 (09:03→21:01)
[2018-08-22] MEDS: NAPROXEN 500 MG TAB PO ×2 (09:03→21:00)
[2018-08-22] MEDS: GABAPENTIN 400 MG CAP PO ×2 (09:04→21:00)
[2018-08-22] MEDS: NYSTATIN 30 GM POWDER BTL TOP ×2 (09:04→21:01)
[2018-08-22] MEDS: SOLIFENACIN 5 MG TAB PO (09:04)
[2018-08-22] MEDS: ALLOPURINOL 300 MG TAB PO (09:04)
[2018-08-22] MEDS: ENOXAPARIN 40 MG/0.4 ML SYG SC (09:12)
[2018-08-22] MEDS: CITALOPRAM 20 MG TAB PO (21:00)
[2018-08-23] MEDS: ACCU-CHEK XX (01:52)
[2018-08-23] MEDS: LEVOTHYROXINE 100 MCG TAB PO (06:08)
[2018-08-23] MEDS: ACETAMINOPHEN 500 MG TAB PO ×3 (06:08→21:17)
[2018-08-23] MEDS: PANTOPRAZOLE (EC) 40 MG TAB PO (06:08)
[2018-08-23] MEDS: INSULIN ASPART [NOVOLOG] 3 ML PEN SC ×4 (07:50→21:00)
[2018-08-23] MEDS: ALLOPURINOL 300 MG TAB PO (08:54)
[2018-08-23] MEDS: NAPROXEN 500 MG TAB PO ×2 (08:54→21:17)
[2018-08-23] MEDS: DOCUSATE SODIUM 100 MG CAP PO ×2 (08:55→21:00)
[2018-08-23] MEDS: POLYETHYLENE GLYCOL 17 GM PACKET PO (08:55)
[2018-08-23] MEDS: SOLIFENACIN 5 MG TAB PO (08:55)
[2018-08-23] MEDS: NYSTATIN 30 GM POWDER BTL TOP ×2 (08:55→21:18)
[2018-08-23] MEDS: GABAPENTIN 400 MG CAP PO ×2 (08:55→21:17)
[2018-08-23] MEDS: DICLOFENAC SODIUM 1% GEL 100 GM TUBE TP ×4 (08:56→21:18)
[2018-08-23] MEDS: ENOXAPARIN 40 MG/0.4 ML SYG SC (08:57)
[2018-08-23] MEDS: PERMETHRIN 1% 59 ML TOP ×2 (12:30→13:37)
[2018-08-23] MEDS: HYDROCODONE/APAP (10/325) TAB PO (15:34)
[2018-08-23] MEDS: CITALOPRAM 20 MG TAB PO (21:18)
[2018-08-24] MEDS: ACCU-CHEK XX (02:00)
[2018-08-24 05:47] LABS: ANION GAP 7 (5-13); BLOOD UREA NITROGEN 44 mg/dl (7-20); CALCIUM 9.2 mg/dl (8.4-10.2); CARBON DIOXIDE 28 mmol/L (21-31); CHLORIDE 104 mmol/L (97-110); CREATININE 1.34 mg/dl (0.44-1.00); Estimated GFR 40 mL/min (>60); GLUCOSE 107 mg/dl (70-220); MAGNESIUM 2.1 mg/dl (1.7-2.5); PHOSPHORUS 4.7 mg/dl (2.5-4.9); POTASSIUM 4.9 mmol/L (3.5-5.1); SODIUM 139 mmol/L (135-144)
[2018-08-24] MEDS: PANTOPRAZOLE (EC) 40 MG TAB PO (06:16)
[2018-08-24] MEDS: LEVOTHYROXINE 100 MCG TAB PO (06:16)
[2018-08-24] MEDS: ACETAMINOPHEN 500 MG TAB PO ×3 (06:16→22:17)
[2018-08-24] MEDS: INSULIN ASPART [NOVOLOG] 3 ML PEN SC ×4 (08:50→20:29)
[2018-08-24] MEDS: DOCUSATE SODIUM 100 MG CAP PO ×2 (09:00→20:36)
[2018-08-24] MEDS: POLYETHYLENE GLYCOL 17 GM PACKET PO (09:00)
[2018-08-24] MEDS: ENOXAPARIN 40 MG/0.4 ML SYG SC (10:16)
[2018-08-24] MEDS: ACETAMINOPHEN 325 MG TAB PO (10:17)
[2018-08-24] MEDS: SOLIFENACIN 5 MG TAB PO (10:17)
[2018-08-24] MEDS: GABAPENTIN 400 MG CAP PO ×2 (10:17→20:25)
[2018-08-24] MEDS: ALLOPURINOL 300 MG TAB PO (10:17)
[2018-08-24] MEDS: NYSTATIN 30 GM POWDER BTL TOP ×2 (10:18→20:37)
[2018-08-24] MEDS: DICLOFENAC SODIUM 1% GEL 100 GM TUBE TP ×4 (10:18→20:37)
[2018-08-24] MEDS: HYDROCODONE/APAP (10/325) TAB PO (13:13)
[2018-08-24] MEDS: CITALOPRAM 20 MG TAB PO (20:36)
[2018-08-25] MEDS: ACCU-CHEK XX (02:00)
[2018-08-25] MEDS: LEVOTHYROXINE 100 MCG TAB PO (06:10)
[2018-08-25] MEDS: PANTOPRAZOLE (EC) 40 MG TAB PO (06:10)
[2018-08-25] MEDS: ACETAMINOPHEN 500 MG TAB PO ×3 (06:10→22:00)
[2018-08-25] MEDS: INSULIN ASPART [NOVOLOG] 3 ML PEN SC ×4 (07:50→21:00)
[2018-08-25] MEDS: DOCUSATE SODIUM 100 MG CAP PO ×2 (09:00→21:00)
[2018-08-25] MEDS: POLYETHYLENE GLYCOL 17 GM PACKET PO (09:00)
[2018-08-25] MEDS: ALLOPURINOL 300 MG TAB PO (09:05)
[2018-08-25] MEDS: SOLIFENACIN 5 MG TAB PO (09:05)
[2018-08-25] MEDS: GABAPENTIN 400 MG CAP PO ×2 (09:05→21:34)
[2018-08-25] MEDS: NYSTATIN 30 GM POWDER BTL TOP ×2 (09:06→21:37)
[2018-08-25] MEDS: DICLOFENAC SODIUM 1% GEL 100 GM TUBE TP ×4 (09:07→21:35)
[2018-08-25] MEDS: ENOXAPARIN 40 MG/0.4 ML SYG SC (09:09)
[2018-08-25] MEDS: HYDROCODONE/APAP (10/325) TAB PO ×2 (09:17→21:34)
[2018-08-25] MEDS: CITALOPRAM 20 MG TAB PO (21:34)
[2018-08-26] MEDS: ACCU-CHEK XX (00:20)
[2018-08-26] MEDS: ACETAMINOPHEN 500 MG TAB PO ×3 (06:00→22:00)
[2018-08-26] MEDS: LEVOTHYROXINE 100 MCG TAB PO (07:26)
[2018-08-26] MEDS: PANTOPRAZOLE (EC) 40 MG TAB PO (07:26)
[2018-08-26] MEDS: SOLIFENACIN 5 MG TAB PO (08:48)
[2018-08-26] MEDS: GABAPENTIN 400 MG CAP PO ×2 (08:49→21:29)
[2018-08-26] MEDS: ALLOPURINOL 300 MG TAB PO (08:49)
[2018-08-26] MEDS: ENOXAPARIN 40 MG/0.4 ML SYG SC (08:53)
[2018-08-26] MEDS: NYSTATIN 30 GM POWDER BTL TOP ×2 (08:54→21:32)
[2018-08-26] MEDS: DICLOFENAC SODIUM 1% GEL 100 GM TUBE TP ×4 (08:54→21:00)
[2018-08-26] MEDS: POLYETHYLENE GLYCOL 17 GM PACKET PO (08:55)
[2018-08-26] MEDS: DOCUSATE SODIUM 100 MG CAP PO ×2 (08:55→21:00)
[2018-08-26] MEDS: INSULIN ASPART [NOVOLOG] 3 ML PEN SC ×4 (08:55→21:00)
[2018-08-26] MEDS: ACETAMINOPHEN 325 MG TAB PO ×2 (10:12→16:22)
[2018-08-26] MEDS: CITALOPRAM 20 MG TAB PO (21:29)
[2018-08-26] MEDS: HYDROCODONE/APAP (10/325) TAB PO (23:06)
[2018-08-27] MEDS: ACCU-CHEK XX (01:48)
[2018-08-27] MEDS: ACETAMINOPHEN 500 MG TAB PO ×3 (06:00→20:43)
[2018-08-27] MEDS: PANTOPRAZOLE (EC) 40 MG TAB PO (07:21)
[2018-08-27] MEDS: LEVOTHYROXINE 100 MCG TAB PO (07:21)
[2018-08-27] MEDS: INSULIN ASPART [NOVOLOG] 3 ML PEN SC (07:50)
[2018-08-27] MEDS: DOCUSATE SODIUM 100 MG CAP PO ×3 (09:00→20:44)
[2018-08-27] MEDS: POLYETHYLENE GLYCOL 17 GM PACKET PO (09:00)
[2018-08-27] MEDS: ALLOPURINOL 300 MG TAB PO (09:27)
[2018-08-27] MEDS: GABAPENTIN 400 MG CAP PO ×2 (09:27→20:41)
[2018-08-27] MEDS: SOLIFENACIN 5 MG TAB PO (09:27)
[2018-08-27] MEDS: DICLOFENAC SODIUM 1% GEL 100 GM TUBE TP ×4 (09:28→20:42)
[2018-08-27] MEDS: NYSTATIN 30 GM POWDER BTL TOP ×2 (09:29→20:42)
[2018-08-27] MEDS: ENOXAPARIN 40 MG/0.4 ML SYG SC (12:14)
[2018-08-27] MEDS: CITALOPRAM 20 MG TAB PO (20:42)
[2018-08-27] MEDS: HYDROCODONE/APAP (10/325) TAB PO (22:15)
[2018-08-28] MEDS: LEVOTHYROXINE 100 MCG TAB PO (05:29)
[2018-08-28] MEDS: ACETAMINOPHEN 500 MG TAB PO ×3 (05:29→21:10)
[2018-08-28] MEDS: PANTOPRAZOLE (EC) 40 MG TAB PO (05:29)
[2018-08-28] MEDS: DOCUSATE SODIUM 100 MG CAP PO ×2 (09:00→21:10)
[2018-08-28] MEDS: POLYETHYLENE GLYCOL 17 GM PACKET PO (09:00)
[2018-08-28] MEDS: SOLIFENACIN 5 MG TAB PO (09:00)
[2018-08-28] MEDS: DICLOFENAC SODIUM 1% GEL 100 GM TUBE TP ×4 (09:01→21:10)
[2018-08-28] MEDS: ALLOPURINOL 300 MG TAB PO (09:01)
[2018-08-28] MEDS: GABAPENTIN 400 MG CAP PO ×2 (09:01→21:10)
[2018-08-28] MEDS: ENOXAPARIN 40 MG/0.4 ML SYG SC (09:03)
[2018-08-28] MEDS: NYSTATIN 30 GM POWDER BTL TOP ×2 (09:03→21:10)
[2018-08-28] MEDS: HYDROCODONE/APAP (10/325) TAB PO (13:46)
[2018-08-28] MEDS: CITALOPRAM 20 MG TAB PO (21:10)
[2018-08-29 05:33] LABS: ANION GAP 6 (5-13); BLOOD UREA NITROGEN 35 mg/dl (7-20); CALCIUM 9.5 mg/dl (8.4-10.2); CARBON DIOXIDE 28 mmol/L (21-31); CHLORIDE 108 mmol/L (97-110); CREATININE 1.21 mg/dl (0.44-1.00); Estimated GFR 45 mL/min (>60); GLUCOSE 111 mg/dl (70-220); MAGNESIUM 2.1 mg/dl (1.7-2.5); PHOSPHORUS 4.7 mg/dl (2.5-4.9); POTASSIUM 4.9 mmol/L (3.5-5.1); SODIUM 142 mmol/L (135-144)
[2018-08-29] MEDS: LEVOTHYROXINE 100 MCG TAB PO (06:13)
[2018-08-29] MEDS: PANTOPRAZOLE (EC) 40 MG TAB PO (06:13)
[2018-08-29] MEDS: ACETAMINOPHEN 500 MG TAB PO ×3 (06:13→20:11)
[2018-08-29] MEDS: DOCUSATE SODIUM 100 MG CAP PO ×2 (09:00→21:00)
[2018-08-29] MEDS: POLYETHYLENE GLYCOL 17 GM PACKET PO (09:00)
[2018-08-29] MEDS: ALLOPURINOL 300 MG TAB PO (09:07)
[2018-08-29] MEDS: SOLIFENACIN 5 MG TAB PO (09:07)
[2018-08-29] MEDS: HYDROCODONE/APAP (10/325) TAB PO (09:07)
[2018-08-29] MEDS: GABAPENTIN 400 MG CAP PO ×2 (09:08→20:11)
[2018-08-29] MEDS: ENOXAPARIN 40 MG/0.4 ML SYG SC (09:10)
[2018-08-29] MEDS: DICLOFENAC SODIUM 1% GEL 100 GM TUBE TP ×4 (09:10→20:12)
[2018-08-29] MEDS: NYSTATIN 30 GM POWDER BTL TOP ×2 (09:10→20:12)
[2018-08-29] MEDS: CITALOPRAM 20 MG TAB PO (20:11)
[2018-08-30] MEDS: PANTOPRAZOLE (EC) 40 MG TAB PO (06:08)
[2018-08-30] MEDS: ACETAMINOPHEN 500 MG TAB PO ×3 (06:08→20:16)
[2018-08-30] MEDS: LEVOTHYROXINE 100 MCG TAB PO (06:10)
[2018-08-30] MEDS: DOCUSATE SODIUM 100 MG CAP PO ×2 (09:00→21:00)
[2018-08-30] MEDS: POLYETHYLENE GLYCOL 17 GM PACKET PO (09:00)
[2018-08-30] MEDS: GABAPENTIN 400 MG CAP PO ×2 (09:09→20:16)
[2018-08-30] MEDS: ALLOPURINOL 300 MG TAB PO (09:09)
[2018-08-30] MEDS: SOLIFENACIN 5 MG TAB PO (09:09)
[2018-08-30] MEDS: ENOXAPARIN 40 MG/0.4 ML SYG SC (09:12)
[2018-08-30] MEDS: NYSTATIN 30 GM POWDER BTL TOP ×2 (09:15→20:16)
[2018-08-30] MEDS: DICLOFENAC SODIUM 1% GEL 100 GM TUBE TP ×4 (09:16→20:17)
[2018-08-30] MEDS: HYDROCODONE/APAP (10/325) TAB PO ×2 (11:37→23:05)
[2018-08-30] MEDS: PERMETHRIN 1% 59 ML TOP ×2 (12:00→19:24)
[2018-08-30] MEDS: CITALOPRAM 20 MG TAB PO (20:16)
[2018-08-31] MEDS: ACETAMINOPHEN 500 MG TAB PO ×3 (05:25→22:00)
[2018-08-31] MEDS: PANTOPRAZOLE (EC) 40 MG TAB PO (05:25)
[2018-08-31] MEDS: LEVOTHYROXINE 100 MCG TAB PO (05:25)
[2018-08-31] MEDS: POLYETHYLENE GLYCOL 17 GM PACKET PO (09:00)
[2018-08-31] MEDS: DOCUSATE SODIUM 100 MG CAP PO ×2 (09:00→21:37)
[2018-08-31] MEDS: HYDROCODONE/APAP (10/325) TAB PO ×2 (09:56→21:37)
[2018-08-31] MEDS: NYSTATIN 30 GM POWDER BTL TOP ×2 (09:56→21:39)
[2018-08-31] MEDS: GABAPENTIN 400 MG CAP PO ×2 (09:56→21:38)
[2018-08-31] MEDS: ALLOPURINOL 300 MG TAB PO (09:56)
[2018-08-31] MEDS: SOLIFENACIN 5 MG TAB PO (09:56)
[2018-08-31] MEDS: DICLOFENAC SODIUM 1% GEL 100 GM TUBE TP ×4 (09:56→21:39)
[2018-08-31] MEDS: ENOXAPARIN 40 MG/0.4 ML SYG SC (09:57)
[2018-08-31] MEDS: CITALOPRAM 20 MG TAB PO (21:37)
[2018-09-01] MEDS: ACETAMINOPHEN 500 MG TAB PO ×2 (06:00→14:00)
[2018-09-01] MEDS: PANTOPRAZOLE (EC) 40 MG TAB PO (07:15)
[2018-09-01] MEDS: LEVOTHYROXINE 100 MCG TAB PO (07:15)
[2018-09-01] MEDS: DOCUSATE SODIUM 100 MG CAP PO (08:35)
[2018-09-01] MEDS: POLYETHYLENE GLYCOL 17 GM PACKET PO (08:35)
[2018-09-01] MEDS: SOLIFENACIN 5 MG TAB PO (08:44)
[2018-09-01] MEDS: NYSTATIN 30 GM POWDER BTL TOP (08:44)
[2018-09-01] MEDS: DICLOFENAC SODIUM 1% GEL 100 GM TUBE TP ×2 (08:44→13:00)
[2018-09-01] MEDS: GABAPENTIN 400 MG CAP PO (08:44)
[2018-09-01] MEDS: ALLOPURINOL 300 MG TAB PO (08:44)
[2018-09-01] MEDS: ENOXAPARIN 40 MG/0.4 ML SYG SC (08:45)
[2018-09-01] MEDS: HYDROCODONE/APAP (10/325) TAB PO (15:29)
== END 2018-09-01 15:36 | disposition home or self-care (01) | DRG 554 ==
LOC: E/R 15:04 → MS1 21:24
DX: M17.12 Unilateral primary osteoarthritis, left knee (principal); Z68.45 Body mass index [BMI] 70 or greater, adult; N17.9 Acute kidney failure, unspecified; E11.40 Type 2 diabetes mellitus with diabetic neuropathy, unspecified; E11.22 Type 2 diabetes mellitus with diabetic chronic kidney disease; G62.9 Polyneuropathy, unspecified; I12.9 Hypertensive chronic kidney disease with stage 1 through stage 4 chronic kidney disease, or unspecified chronic kidney disease; E66.01 Morbid (severe) obesity due to excess calories; E87.5 Hyperkalemia; N18.3 Chronic kidney disease, stage 3 (moderate); N32.81 Overactive bladder; E03.9 Hypothyroidism, unspecified; M54.30 Sciatica, unspecified side; Z72.0 Tobacco use; F12.90 Cannabis use, unspecified, uncomplicated; Z72.89 Other problems related to lifestyle; E11.9 Type 2 diabetes mellitus without complications; N28.9 Disorder of kidney and ureter, unspecified; M10.9 Gout, unspecified; F32.9 Major depressive disorder, single episode, unspecified; B85.2 Pediculosis, unspecified; Z59.0 Homelessness
CPT/HCPCS: 73562; 76775; 80048; 80053; 80061; 81001; 81003; 82043; 82962; 83036; 83735; 84100; 84155; 84300; 84443; 84484; 85025; 85610; 85730; 93005; 94660; 96372; 96374; 96375; 97110; 97116; 97161; 97530; 99217; 99285-25

== ENCOUNTER 2019-01-04 20:08 | Emergency (ER) | payer BC | END 2019-01-04 22:48 | disposition home or self-care (01) | LOC: FTE 20:08 | DX: S60.361A Insect bite (nonvenomous) of right thumb, initial encounter (principal); S80.862A Insect bite (nonvenomous), left lower leg, initial encounter; S80.861A Insect bite (nonvenomous), right lower leg, initial encounter; W57.XXXA Bitten or stung by nonvenomous insect and other nonvenomous arthropods, initial encounter; Y92.9 Unspecified place or not applicable | CPT/HCPCS: 99283 ==